=== PATIENT | male | born 1940 | race Caucasian/White ===

== ENCOUNTER 2016-07-29 18:42 | Inpatient (IN) | payer MEDICARE, OTHER ==
[~2016-07-29] VITALS: Ht 177.8 cm; Wt 66.3 kg
[2016-07-29] MEDS ORDERED: ALBUTEROL/IPRATROPIUM 2.5MG/0.5MG, 3 ML ONE ×2 (19:22→19:30)
[2016-07-29] MEDS ORDERED: SODIUM CHLORIDE 0.9% 1,000ML IVBOLUS ONE (19:30)
[2016-07-29] MEDS ORDERED: SODIUM CHLORIDE FLUSH 10ML SYR IVF ONE (19:30)
[2016-07-29] MEDS: ALBUTEROL/IPRATROPIUM 2.5MG/0.5MG, 3 ML NPPB SCH ×2 (19:39→23:16)
[2016-07-29] MEDS ORDERED: ASPI-515 PO (19:46)
[2016-07-29 19:58] LABS: ASPARTATE AMINO TRANSFERASE 72 U/L (15-37); BLOOD UREA NITROGEN 21 mg/dL (7-18)
[2016-07-29 19:59] LABS: IS PT STATUS REG ER OR PRE ER? YES
[2016-07-29 20:13] LABS: DIFF TOTAL CELLS COUNTED 100 CELL DIFF
[2016-07-29 20:16] LABS: ANISOCYTOSIS 1+; LARGE PLATELETS 1+; VERIFY COUNTS? YES
[2016-07-29] MEDS ORDERED: CEFTRIAXONE PMX 1GM/50ML 50 ML IVPB ONE (20:30)
[2016-07-29] MEDS ORDERED: AZITHROMYCIN 500 MG in SODIUM CHLORIDE 0.9% 250 ML IV ONE (20:30)
[2016-07-29] MEDS ORDERED: SERT25TA3 PO (20:44)
[2016-07-29] MEDS ORDERED: BUDE10.2 INH (20:44)
[2016-07-29] MEDS ORDERED: TAMS-11 PO (20:44)
[2016-07-29] MEDS ORDERED: CARV6.252 PO (20:44)
[2016-07-29] MEDS ORDERED: ALBU18HF INH (20:44)
[2016-07-29] MEDS ORDERED: MULT-6 PO (20:44)
[2016-07-29] MEDS ORDERED: FERR140T2 PO (20:44)
[2016-07-29] MEDS ORDERED: CHOL20003 PO (20:44)
[2016-07-29] MEDS ORDERED: ALBU6.7H INH (20:44)
[2016-07-29] MEDS: SODIUM CHLORIDE 0.9% 1,000 ML IV SCH (20:45)
[2016-07-29 20:49] LABS: PATH.CAST-FLAG NOT PRESENT; SPERM-FLAG NOT PRESENT; SRC-FLAG NOT PRESENT; XTAL-FLAG NOT PRESENT; YLC-FLAG NOT PRESENT
[2016-07-29] MEDS ORDERED: CEFTRIAXONE PMX 1GM/50ML 50 ML ONE (20:51)
[2016-07-29] MEDS: CEFTRIAXONE PMX 1GM/50ML 50 ML IV SCH (21:00)
[2016-07-29] MEDS: AZITHROMYCIN 500 MG in SODIUM CHLORIDE 0.9% 250 ML IV SCH (21:00)
[2016-07-29] MEDS ORDERED: POLYETHYLENE GLYCOL 17 GM PACKET PO PRN (21:00)
[2016-07-29] MEDS ORDERED: LABETALOL 5MG/ML, 20ML IV PRN (21:00)
[2016-07-29] MEDS ORDERED: BISACODYL 10 MG SUPP PR PRN (21:00)
[2016-07-29] MEDS ORDERED: ACETAMINOPHEN 325 MG TABLET PO PRN (21:00)
[2016-07-29] MEDS ORDERED: DOCUSATE 100 MG CAPSULE PO PRN (21:00)
[2016-07-29] MEDS ORDERED: ONDANSETRON 2MG/ML, 2ML IVP PRN (21:00)
[2016-07-29] MEDS ORDERED: ALBUTEROL/IPRATROPIUM 2.5MG/0.5MG, 3 ML NPPB PRN (23:30)
[2016-07-30 00:09] VITALS: BP 160/82
[2016-07-30] MEDS: CARVEDILOL 6.25 MG TABLET PO SCH ×3 (00:48→20:18)
[2016-07-30] MEDS: LACTOBACILLUS CHEW TABLET PO SCH ×5 (00:49→20:18)
[2016-07-30] MEDS: methylPREDNISolone SOD SUCC 125 MG/2 ML IVPush SCH ×4 (00:49→20:18)
[2016-07-30] MEDS: HEPARIN 5,000 UNITS/ML, 1ML SQ SCH ×3 (00:53→17:08)
[2016-07-30 04:35] VITALS: BP 106/67
[2016-07-30] MEDS: SODIUM CHLORIDE 0.9% 1,000 ML IV SCH ×2 (04:39→17:08)
[2016-07-30 05:33] LABS: BLOOD UREA NITROGEN 20 mg/dL (7-18)
[2016-07-30 05:35] LABS: ASPARTATE AMINO TRANSFERASE 37 U/L (15-37)
[2016-07-30 05:55] LABS: DIFF TOTAL CELLS COUNTED 100 CELL DIFF
[2016-07-30 05:58] LABS: ANISOCYTOSIS 1+; VERIFY COUNTS? YES
[2016-07-30 06:00] LABS: LARGE PLATELETS 1+
[2016-07-30] MEDS: ALBUTEROL/IPRATROPIUM 2.5MG/0.5MG, 3 ML NPPB SCH ×4 (06:31→20:34)
[2016-07-30] MEDS: ASPIRIN 81 MG TABLET EC PO SCH (08:21)
[2016-07-30] MEDS: MULTIVITAMIN 1 TABLET PO SCH (08:21)
[2016-07-30] MEDS: TAMSULOSIN 0.4 MG CAP.ER.24H PO SCH (08:21)
[2016-07-30] MEDS: CEFTRIAXONE PMX 1GM/50ML 50 ML IV SCH ×2 (08:21→20:18)
[2016-07-30] MEDS: SERTRALINE 50MG TABLET PO SCH (08:22)
[2016-07-30 08:35] VITALS: BP 111/73
[2016-07-30] MEDS: FLUTICASONE/VILANTEROL 200-25MCG/INH INH SCH (11:30)
[2016-07-30 14:23] VITALS: BP 120/75
[2016-07-30 18:35] VITALS: BP 133/81
[2016-07-30] MEDS: AZITHROMYCIN 500 MG in SODIUM CHLORIDE 0.9% 250 ML IV SCH (21:23)
[2016-07-31 01:32] VITALS: BP 147/86
[2016-07-31] MEDS: HEPARIN 5,000 UNITS/ML, 1ML SQ SCH ×3 (01:32→16:49)
[2016-07-31] MEDS: methylPREDNISolone SOD SUCC 125 MG/2 ML IVPush SCH ×4 (01:32→20:13)
[2016-07-31] MEDS: LACTOBACILLUS CHEW TABLET PO SCH ×4 (05:09→20:14)
[2016-07-31] MEDS: SODIUM CHLORIDE 0.9% 1,000 ML IV SCH ×2 (05:10→16:00)
[2016-07-31 06:22] LABS: DIFF TOTAL CELLS COUNTED 100 CELL DIFF
[2016-07-31 06:26] LABS: VERIFY COUNTS? YES
[2016-07-31 06:29] LABS: LARGE PLATELETS 1+
[2016-07-31 07:51] VITALS: BP 155/90
[2016-07-31] MEDS: ASPIRIN 81 MG TABLET EC PO SCH (08:11)
[2016-07-31] MEDS: MULTIVITAMIN 1 TABLET PO SCH (08:11)
[2016-07-31] MEDS: SERTRALINE 50MG TABLET PO SCH (08:12)
[2016-07-31] MEDS: FLUTICASONE/VILANTEROL 200-25MCG/INH INH SCH (08:12)
[2016-07-31] MEDS: CARVEDILOL 6.25 MG TABLET PO SCH ×2 (08:12→20:14)
[2016-07-31] MEDS: CEFTRIAXONE PMX 1GM/50ML 50 ML IV SCH ×2 (08:13→20:14)
[2016-07-31] MEDS: ALBUTEROL/IPRATROPIUM 2.5MG/0.5MG, 3 ML NPPB SCH ×4 (08:22→20:00)
[2016-07-31] MEDS: TAMSULOSIN 0.4 MG CAP.ER.24H PO SCH (11:43)
[2016-07-31 13:17] VITALS: BP 143/85
[2016-07-31 18:46] VITALS: BP 153/87
[2016-07-31] MEDS: GUAIFENESIN 200 MG TABLET PO SCH (20:13)
[2016-07-31] MEDS: AZITHROMYCIN 500 MG in SODIUM CHLORIDE 0.9% 250 ML IV SCH (21:51)
[2016-08-01] MEDS: methylPREDNISolone SOD SUCC 125 MG/2 ML IVPush SCH ×2 (02:02→08:44)
[2016-08-01] MEDS: HEPARIN 5,000 UNITS/ML, 1ML SQ SCH ×2 (02:03→11:33)
[2016-08-01 03:11] VITALS: BP 161/99
[2016-08-01] MEDS: LACTOBACILLUS CHEW TABLET PO SCH ×2 (06:08→11:33)
[2016-08-01] MEDS: ALBUTEROL/IPRATROPIUM 2.5MG/0.5MG, 3 ML NPPB SCH ×3 (07:30→15:09)
[2016-08-01] MEDS: SERTRALINE 50MG TABLET PO SCH (08:44)
[2016-08-01] MEDS: CEFTRIAXONE PMX 1GM/50ML 50 ML IV SCH (08:44)
[2016-08-01] MEDS: ASPIRIN 81 MG TABLET EC PO SCH (08:45)
[2016-08-01] MEDS: TAMSULOSIN 0.4 MG CAP.ER.24H PO SCH (08:45)
[2016-08-01] MEDS: CARVEDILOL 6.25 MG TABLET PO SCH (08:45)
[2016-08-01] MEDS: MULTIVITAMIN 1 TABLET PO SCH (08:45)
[2016-08-01] MEDS: FLUTICASONE/VILANTEROL 200-25MCG/INH INH SCH (08:45)
[2016-08-01] MEDS: GUAIFENESIN 200 MG TABLET PO SCH (08:45)
[2016-08-01 09:08] VITALS: BP 160/97
[2016-08-01] MEDS ORDERED: GUAI200T3 PO (14:36)
[2016-08-01] MEDS ORDERED: CEFD300C2 PO (14:36)
[2016-08-01] MEDS ORDERED: AZIT500T4 PO (14:36)
[2016-08-01] MEDS ORDERED: PRED5TAB PO (14:36)
[2016-08-01] MEDS ORDERED: IPRA3AMP NPPB (14:36)
[2016-08-01] MEDS ORDERED: DOCU-30 PO (14:36)
[2016-08-01] MEDS ORDERED: ACID1TAB7 PO (14:36)
[2016-08-01] MEDS ORDERED: LOSA25TA2 PO (14:46)
[2016-08-01 15:01] VITALS: BP 144/87
== END 2016-08-01 16:00 | disposition home health service (06) | DRG 871 ==
LOC: ED 20:40 → EDIP 20:41 → SUATTDRO 20:43 → ED 21:05 → 4WST 07-30 00:18
PROC: 0T9B70Z Drainage of Bladder with Drainage Device, Via Natural or Artificial Opening (ICD-10-PCS; principal; 2016-07-29)
DX: A41.9 Sepsis, unspecified organism (principal); N17.0 Acute kidney failure with tubular necrosis; J18.9 Pneumonia, unspecified organism; J96.21 Acute and chronic respiratory failure with hypoxia; E44.0 Moderate protein-calorie malnutrition; J44.0 Chronic obstructive pulmonary disease with (acute) lower respiratory infection; J44.1 Chronic obstructive pulmonary disease with (acute) exacerbation; N39.0 Urinary tract infection, site not specified; D64.9 Anemia, unspecified; I11.9 Hypertensive heart disease without heart failure; K21.9 Gastro-esophageal reflux disease without esophagitis; F32.9 Major depressive disorder, single episode, unspecified; N40.0 Benign prostatic hyperplasia without lower urinary tract symptoms; R47.81 Slurred speech; Z87.891 Personal history of nicotine dependence; Z99.81 Dependence on supplemental oxygen; Z90.49 Acquired absence of other specified parts of digestive tract; Z90.89 Acquired absence of other organs; Z84.89 Family history of other specified conditions; Z79.82 Long term (current) use of aspirin; Z79.899 Other long term (current) drug therapy; Z68.21 Body mass index [BMI] 21.0-21.9, adult
CPT/HCPCS: 36415; 71010; 80053; 81001; 82436; 82570; 83605; 83880; 84133; 84145; 84300; 84439; 84443; 84484; 85025; 85610; 85730; 87040; 87086; 87106; 93005; 94640; 96361; 96365; 96366; 96368; J0456; J0696; J1644; J7620; J2930; J7030; J7050; J7512

== ENCOUNTER 2016-09-07 13:01 | Inpatient (IN) | payer MEDICARE, OTHER ==
[~2016-09-07] VITALS: Ht 177.8 cm; Wt 65.6 kg
[~2016-09-07 13:01] MED LIST: ACID1TAB7 PO; ALBU18HF INH; ALBU6.7H INH; ASPI-515 PO; AZIT500T77 PO; BUDE10.2 INH; CARV6.252 PO; CEFD300C37 PO; CHOL20003 PO; DOCU-30 PO; FERR140T2 PO; GUAI200T3 PO; IPRA3AMP NPPB; LOSA25TA2 PO; MULT-6 PO; PRED5TAB PO; SERT25TA3 PO; TAMS-11 PO
[2016-09-07] MEDS ORDERED: methylPREDNISolone SOD SUCC 125 MG/2 ML IVP ONE (14:00)
[2016-09-07] MEDS ORDERED: SODIUM CHLORIDE FLUSH 10ML SYR IVF ONE (14:00)
[2016-09-07] MEDS: ALBUTEROL/IPRATROPIUM 2.5MG/0.5MG, 3 ML NPPB SCH ×2 (14:11→17:00)
[2016-09-07] MEDS ORDERED: ALBUTEROL/IPRATROPIUM 2.5MG/0.5MG, 3 ML ONE ×2 (14:11→17:01)
[2016-09-07] MEDS ORDERED: methylPREDNISolone SOD SUCC 125 MG/2 ML ONE (14:21)
[2016-09-07] MEDS ORDERED: CEFTRIAXONE 1,000 MG in SODIUM CHLORIDE 0.9% 50 ML IVPB ONE (15:00)
[2016-09-07 15:15] LABS: DIFF TOTAL CELLS COUNTED 100 CELL DIFF
[2016-09-07 15:17] LABS: GIANT PLATELETS 1+; LARGE PLATELETS 1+; VERIFY COUNTS? YES
[2016-09-07] MEDS ORDERED: ACETAMINOPHEN 325 MG TABLET ONE (15:27)
[2016-09-07] MEDS ORDERED: SODIUM CHLORIDE 0.9% 1,000ML IVBOLUS ONE ×2 (15:30)
[2016-09-07] MEDS ORDERED: ACETAMINOPHEN 325 MG TABLET PO ONE (15:30)
[2016-09-07 15:50] LABS: ASPARTATE AMINO TRANSFERASE 20 U/L (15-37); BLOOD UREA NITROGEN 22 mg/dL (7-18)
[2016-09-07 16:00] LABS: IS PT STATUS REG ER OR PRE ER? YES
[2016-09-07] MEDS ORDERED: AZITHROMYCIN 500 MG in SODIUM CHLORIDE 0.9% 250 ML IVPB ONE (16:00)
[2016-09-07] MEDS ORDERED: OMNIPAQUE 350 MG/ML, 100ML BOTTLE ONE (17:50)
[2016-09-07] MEDS ORDERED: SODIUM CHLORIDE FLUSH 10ML SYR IVF PRN (18:30)
[2016-09-07] MEDS ORDERED: POLYETHYLENE GLYCOL 17 GM PACKET PO PRN (19:00)
[2016-09-07] MEDS ORDERED: ACETAMINOPHEN 325 MG TABLET PO PRN (19:00)
[2016-09-07] MEDS ORDERED: GUAIFENESIN/DM 200-20MG, 10ML UDC PO PRN (19:00)
[2016-09-07] MEDS ORDERED: KETOROLAC 30 MG/1 ML IVPush PRN (19:00)
[2016-09-07] MEDS ORDERED: OXYcodone IR 5MG TABLET PO PRN (19:00)
[2016-09-07] MEDS ORDERED: ONDANSETRON 2MG/ML, 2ML IVPush PRN (19:00)
[2016-09-07] MEDS ORDERED: ALBUTEROL/IPRATROPIUM 2.5MG/0.5MG, 3 ML NPPB PRN (19:00)
[2016-09-07] MEDS ORDERED: BISACODYL 10 MG SUPP PR PRN (19:00)
[2016-09-07] MEDS: AZITHROMYCIN 500 MG in SODIUM CHLORIDE 0.9% 250 ML IV SCH (19:19)
[2016-09-07] MEDS: CEFTRIAXONE 1,000 MG in SODIUM CHLORIDE 0.9% 50 ML IV SCH (19:19)
[2016-09-07 20:00] VITALS: BP 113/72
[2016-09-07] MEDS: CHOLECALCIFEROL 1,000 UNIT TABLET PO SCH (21:52)
[2016-09-07] MEDS: FERROUS SULFATE 325 MG TABLET PO SCH (21:52)
[2016-09-07] MEDS: HEPARIN 5,000 UNITS/ML, 1ML SQ SCH (21:53)
[2016-09-07] MEDS: SODIUM CHLORIDE 0.9% 1,000 ML IV SCH (21:53)
[2016-09-07 21:59] VITALS: BP 113/72
[2016-09-08] MEDS: ALBUTEROL/IPRATROPIUM 2.5MG/0.5MG, 3 ML NPPB SCH ×5 (00:01→19:59)
[2016-09-08 04:57] VITALS: BP 126/81
[2016-09-08 05:22] LABS: BLOOD UREA NITROGEN 23 mg/dL (7-18)
[2016-09-08 05:27] LABS: ASPARTATE AMINO TRANSFERASE 13 U/L (15-37)
[2016-09-08] MEDS: HEPARIN 5,000 UNITS/ML, 1ML SQ SCH ×3 (05:29→22:52)
[2016-09-08] MEDS: SODIUM CHLORIDE 0.9% 1,000 ML IV SCH ×3 (05:30→22:51)
[2016-09-08 07:42] VITALS: BP 137/91
[2016-09-08] MEDS: SENNA/DOCUSATE TABLET PO SCH (09:00)
[2016-09-08] MEDS: ASPIRIN 81 MG TABLET EC PO SCH (09:32)
[2016-09-08] MEDS: FLUTICASONE/VILANTEROL 200-25MCG/INH INH SCH (09:32)
[2016-09-08] MEDS: SERTRALINE 50MG TABLET PO SCH (09:33)
[2016-09-08] MEDS: MULTIVITAMIN 1 TABLET PO SCH (09:33)
[2016-09-08] MEDS: TAMSULOSIN 0.4 MG CAP.ER.24H PO SCH (09:33)
[2016-09-08] MEDS: FERROUS SULFATE 325 MG TABLET PO SCH ×2 (10:50→22:51)
[2016-09-08] MEDS: CHOLECALCIFEROL 1,000 UNIT TABLET PO SCH ×2 (10:50→22:52)
[2016-09-08 13:40] VITALS: BP 100/69
[2016-09-08] MEDS: CEFTRIAXONE 1,000 MG in SODIUM CHLORIDE 0.9% 50 ML IV SCH (14:56)
[2016-09-08] MEDS: AZITHROMYCIN 500 MG in SODIUM CHLORIDE 0.9% 250 ML IV SCH (15:40)
[2016-09-08 19:14] VITALS: BP 120/69
[2016-09-09 01:55] VITALS: BP 149/87
[2016-09-09 05:23] LABS: ASPARTATE AMINO TRANSFERASE 18 U/L (15-37); BLOOD UREA NITROGEN 25 mg/dL (7-18)
[2016-09-09] MEDS: ALBUTEROL/IPRATROPIUM 2.5MG/0.5MG, 3 ML NPPB SCH ×4 (06:34→20:05)
[2016-09-09 08:35] VITALS: BP 152/91
[2016-09-09] MEDS: FERROUS SULFATE 325 MG TABLET PO SCH ×2 (08:47→19:59)
[2016-09-09] MEDS: ASPIRIN 81 MG TABLET EC PO SCH (08:47)
[2016-09-09] MEDS: FLUTICASONE/VILANTEROL 200-25MCG/INH INH SCH (08:47)
[2016-09-09] MEDS: HEPARIN 5,000 UNITS/ML, 1ML SQ SCH ×2 (08:47→15:50)
[2016-09-09] MEDS: SERTRALINE 50MG TABLET PO SCH (08:48)
[2016-09-09] MEDS: MULTIVITAMIN 1 TABLET PO SCH (08:48)
[2016-09-09] MEDS: TAMSULOSIN 0.4 MG CAP.ER.24H PO SCH (08:48)
[2016-09-09] MEDS: CHOLECALCIFEROL 1,000 UNIT TABLET PO SCH ×2 (08:48→19:59)
[2016-09-09] MEDS: SENNA/DOCUSATE TABLET PO SCH (08:48)
[2016-09-09] MEDS: SODIUM CHLORIDE 0.9% 1,000 ML IV SCH ×2 (08:59→14:43)
[2016-09-09] MEDS ORDERED: GADOBUTROL 10 MMOL/10 ML VIAL ONE (13:20)
[2016-09-09 14:36] VITALS: BP 127/83
[2016-09-09] MEDS: CEFTRIAXONE 1,000 MG in SODIUM CHLORIDE 0.9% 50 ML IV SCH (14:41)
[2016-09-09] MEDS: AZITHROMYCIN 500 MG in SODIUM CHLORIDE 0.9% 250 ML IV SCH (15:50)
[2016-09-09 18:26] VITALS: BP 125/62
[2016-09-09 19:01] VITALS: BP 130/92
[2016-09-09] MEDS: CARVEDILOL 6.25 MG TABLET PO SCH (19:59)
[2016-09-10 01:54] VITALS: BP 150/96
[2016-09-10 05:56] LABS: ASPARTATE AMINO TRANSFERASE 17 U/L (15-37); BLOOD UREA NITROGEN 21 mg/dL (7-18)
[2016-09-10 06:28] VITALS: BP 154/98
[2016-09-10] MEDS: ALBUTEROL/IPRATROPIUM 2.5MG/0.5MG, 3 ML NPPB SCH ×3 (06:47→15:00)
[2016-09-10] MEDS: SENNA/DOCUSATE TABLET PO SCH (07:57)
[2016-09-10] MEDS: HEPARIN 5,000 UNITS/ML, 1ML SQ SCH ×3 (07:59→15:19)
[2016-09-10] MEDS: FLUTICASONE/VILANTEROL 200-25MCG/INH INH SCH (08:00)
[2016-09-10] MEDS: CARVEDILOL 6.25 MG TABLET PO SCH (08:01)
[2016-09-10] MEDS: CHOLECALCIFEROL 1,000 UNIT TABLET PO SCH (08:02)
[2016-09-10] MEDS: TAMSULOSIN 0.4 MG CAP.ER.24H PO SCH (08:02)
[2016-09-10] MEDS: ASPIRIN 81 MG TABLET EC PO SCH (08:02)
[2016-09-10] MEDS: MULTIVITAMIN 1 TABLET PO SCH (08:02)
[2016-09-10] MEDS: FERROUS SULFATE 325 MG TABLET PO SCH (08:02)
[2016-09-10] MEDS: SERTRALINE 50MG TABLET PO SCH (08:05)
[2016-09-10] MEDS ORDERED: LOSARTAN 25MG TABLET PO SCH (09:00)
[2016-09-10 14:10] VITALS: BP 121/86
[2016-09-10] MEDS ORDERED: CEFTRIAXONE 1,000 MG in SODIUM CHLORIDE 0.9% 100 ML IVPB SCH (15:00)
[2016-09-10] MEDS ORDERED: CEFD300C37 PO (15:11)
[2016-09-10] MEDS ORDERED: DOXY100T PO (15:11)
[2016-09-10] MEDS: AZITHROMYCIN 500 MG in SODIUM CHLORIDE 0.9% 250 ML IV SCH (16:00)
== END 2016-09-10 16:36 | disposition home or self-care (01) | DRG 871 ==
LOC: ED 15:03 → EDIP 18:24 → 3NE 20:05 → DCLOUNGE 09-10 16:16
PROVIDERS: ADMIT Hospitalist; ATTEND Hospitalist
DX: A41.9 Sepsis, unspecified organism (principal); E43 Unspecified severe protein-calorie malnutrition; J18.9 Pneumonia, unspecified organism; J96.21 Acute and chronic respiratory failure with hypoxia; I50.32 Chronic diastolic (congestive) heart failure; J44.0 Chronic obstructive pulmonary disease with (acute) lower respiratory infection; R65.20 Severe sepsis without septic shock; D53.9 Nutritional anemia, unspecified; F32.9 Major depressive disorder, single episode, unspecified; I11.0 Hypertensive heart disease with heart failure; I71.2 Thoracic aortic aneurysm, without rupture; M54.9 Dorsalgia, unspecified; K21.9 Gastro-esophageal reflux disease without esophagitis; K76.9 Liver disease, unspecified; N40.0 Benign prostatic hyperplasia without lower urinary tract symptoms; Z87.01 Personal history of pneumonia (recurrent); Z87.891 Personal history of nicotine dependence; Z99.81 Dependence on supplemental oxygen; Z87.81 Personal history of (healed) traumatic fracture; Z90.49 Acquired absence of other specified parts of digestive tract; Z79.899 Other long term (current) drug therapy; Z79.82 Long term (current) use of aspirin; Z68.20 Body mass index [BMI] 20.0-20.9, adult; R59.0 Localized enlarged lymph nodes
CPT/HCPCS: 36415; 71010; 71275; 74183; 80053; 83605; 83880; 84145; 84484; 85025; 85379; 85610; 85730; 87040; 87070; 87107; 87205; 93005; 93306; 94640; 96365; 96366; 96367; 96375; A9585; J0456; J0696; J1644; J7620; Q9967; J2930; J7030; J7050

== ENCOUNTER 2016-10-02 11:04 | Emergency (ER) | payer MEDICARE, OTHER ==
[~2016-10-02] VITALS: Ht 177.8 cm; Wt 63.6 kg
[~2016-10-02 11:04] MED LIST changes: +DOXY100T PO
[2016-10-02] MEDS ORDERED: SODIUM CHLORIDE 0.9% 1,000ML IV ONE (11:30)
[2016-10-02] MEDS ORDERED: SODIUM CHLORIDE FLUSH 10ML SYR IVF ONE (11:30)
[2016-10-02 12:58] LABS: BLOOD UREA NITROGEN 15 mg/dL (7-18)
[2016-10-02 13:06] LABS: IS PT STATUS REG ER OR PRE ER? YES
[2016-10-02 13:26] LABS: DIFF TOTAL CELLS COUNTED 100 CELL DIFF
[2016-10-02] MEDS ORDERED: DIAZ5TAB PO (14:05)
[2016-10-02] MEDS ORDERED: OXYcodone/APAP 5/325MG TABLET ONE (14:17)
[2016-10-02 14:28] LABS: PATH.CAST-FLAG NOT PRESENT; SPERM-FLAG NOT PRESENT; SRC-FLAG NOT PRESENT; XTAL-FLAG NOT PRESENT; YLC-FLAG NOT PRESENT
[2016-10-02] MEDS ORDERED: OXYcodone/APAP 5/325MG TABLET PO ONE (14:30)
[2016-10-02 14:39] LABS: ANISOCYTOSIS 1+; POLYCHROMASIA 1+; VERIFY COUNTS? YES
[2016-10-02] MEDS ORDERED: SODIUM CHLORIDE 0.9% 1,000ML IVBOLUS ONE (16:30)
[2016-10-02 16:46] VITALS: BP 121/74
== END 2016-10-02 17:05 | disposition home or self-care (01) ==
LOC: ED 16:59
DX: S13.4XXA Sprain of ligaments of cervical spine, initial encounter (principal); M47.892 Other spondylosis, cervical region; M48.02 Spinal stenosis, cervical region; I10 Essential (primary) hypertension; J44.9 Chronic obstructive pulmonary disease, unspecified; X58.XXXA Exposure to other specified factors, initial encounter; Y93.89 Activity, other specified; Y92.89 Other specified places as the place of occurrence of the external cause; Y99.9 Unspecified external cause status
CPT/HCPCS: 36415; 71010; 72141; 80048; 81001; 82040; 83880; 84484; 85025; 85651; 87086; 93005; 96360; 99285; J7030; J7512

== ENCOUNTER 2017-03-15 20:25 | Inpatient (IN) | payer MEDICARE, OTHER ==
[~2017-03-15] VITALS: Ht 177.8 cm; Wt 61.5 kg
[~2017-03-15 20:25] MED LIST changes: +AZIT500T5 PO; -AZIT500T77 PO; +CHOL2000 PO; -CHOL20003 PO; +DIAZ5TAB PO; +DOCU-131 PO; -DOCU-30 PO
[2017-03-15] MEDS ORDERED: ONDANSETRON 2MG/ML, 2ML ONE (20:53)
[2017-03-15] MEDS ORDERED: FAMOTIDINE 20 MG/2 ML ONE (20:53)
[2017-03-15] MEDS ORDERED: SODIUM CHLORIDE 0.9% 1,000ML IVBOLUS ONE (21:00)
[2017-03-15] MEDS ORDERED: ONDANSETRON 2MG/ML, 2ML IVPush ONE (21:00)
[2017-03-15] MEDS ORDERED: FAMOTIDINE 20 MG/2 ML IVP ONE (21:00)
[2017-03-15] MEDS ORDERED: SODIUM CHLORIDE FLUSH 10ML SYR IVF ONE (21:00)
[2017-03-15] MEDS ORDERED: ALBUTEROL/IPRATROPIUM 2.5MG/0.5MG, 3 ML ONE (21:11)
[2017-03-15 21:14] LABS: HEMATOCRIT 36.2 % (39.2-51.8); HEMOGLOBIN 12.1 g/dL (13.7-18.0); WHITE BLOOD COUNT 11.1 x10^3/uL (3.4-10)
[2017-03-15 21:26] LABS: ASPARTATE AMINO TRANSFERASE 19 U/L (15-37); BLOOD UREA NITROGEN 19 mg/dL (7-18)
[2017-03-15] MEDS ORDERED: ALBUTEROL/IPRATROPIUM 2.5MG/0.5MG, 3 ML NPPB SCH (21:30)
[2017-03-15] MEDS ORDERED: OMNIPAQUE 350 MG/ML, 100ML BOTTLE ONE (23:07)
[2017-03-15] MEDS ORDERED: CEFTRIAXONE PMX 1GM/50ML 50 ML ONE (23:41)
[2017-03-15] MEDS ORDERED: [UNRECOGNIZED DRUG - CODE] PO (23:58)
[2017-03-15] MEDS ORDERED: RANI150T4 PO (23:58)
[2017-03-15] MEDS ORDERED: CLON0.1T PO (23:58)
[2017-03-16] MEDS ORDERED: CEFTRIAXONE PMX 1GM/50ML 50 ML IV ONE
[2017-03-16] MEDS ORDERED: AZITHROMYCIN 500 MG in SODIUM CHLORIDE 0.9% 250 ML IV ONE
[2017-03-16] MEDS ORDERED: ONDANSETRON 2MG/ML, 2ML IVPush PRN (00:30)
[2017-03-16] MEDS ORDERED: ACETAMINOPHEN 325 MG TABLET PO PRN (00:30)
[2017-03-16 01:07] VITALS: BP 123/86
[2017-03-16] MEDS ORDERED: ALBUTEROL/IPRATROPIUM 2.5MG/0.5MG, 3 ML NPPB PRN (04:00)
[2017-03-16 04:57] LABS: HEMATOCRIT 32.2 % (39.2-51.8); HEMOGLOBIN 10.8 g/dL (13.7-18.0); WHITE BLOOD COUNT 11.1 x10^3/uL (3.4-10)
[2017-03-16 05:12] LABS: ASPARTATE AMINO TRANSFERASE 16 U/L (15-37); BLOOD UREA NITROGEN 16 mg/dL (7-18)
[2017-03-16] MEDS: HEPARIN 5,000 UNITS/ML, 1ML SQ SCH ×3 (05:48→20:18)
[2017-03-16 06:41] LABS: DIFF TOTAL CELLS COUNTED 100 CELL DIFF
[2017-03-16 06:43] LABS: ANISOCYTOSIS 1+; VERIFY COUNTS? YES
[2017-03-16 06:44] LABS: LARGE PLATELETS 1+
[2017-03-16 07:01] VITALS: BP 115/76
[2017-03-16] MEDS: ALBUTEROL/IPRATROPIUM 2.5MG/0.5MG, 3 ML NPPB SCH ×4 (08:30→19:55)
[2017-03-16] MEDS: CHOLECALCIFEROL 1,000 UNIT TABLET PO SCH ×2 (08:58→20:18)
[2017-03-16] MEDS: TAMSULOSIN 0.4 MG CAP.ER.24H PO SCH (08:58)
[2017-03-16] MEDS: FAMOTIDINE 20 MG TABLET PO SCH ×2 (08:58→20:18)
[2017-03-16] MEDS: ASPIRIN 81 MG TABLET EC PO SCH (08:58)
[2017-03-16] MEDS: SERTRALINE 50MG TABLET PO SCH (08:58)
[2017-03-16] MEDS: CARVEDILOL 6.25 MG TABLET PO SCH ×2 (08:58→20:18)
[2017-03-16] MEDS: GUAIFENESIN 200 MG TABLET PO SCH (08:58)
[2017-03-16] MEDS: SODIUM CHLORIDE FLUSH 10ML SYR IVF SCH ×2 (09:00→20:18)
[2017-03-16] MEDS: FLUTICASONE/VILANTEROL 200-25MCG/INH INH SCH (09:53)
[2017-03-16 13:06] VITALS: BP 79/54
[2017-03-16] MEDS ORDERED: SODIUM CHLORIDE 0.9% 1,000ML IVBOLUS ONE (13:30)
[2017-03-16 14:30] VITALS: BP 129/76
[2017-03-16] MEDS: SODIUM CHLORIDE 0.9% 1,000 ML IV SCH ×2 (14:48→20:17)
[2017-03-16 15:45] LABS: TOTAL IRON BINDING CAPACITY 210 mcg/dL (250-450)
[2017-03-16 16:11] LABS: FERRITIN 126.1 ng/mL (26-388)
[2017-03-16 18:49] VITALS: BP 120/81
[2017-03-16 21:45] VITALS: BP 101/63
[2017-03-17] MEDS ORDERED: CEFTRIAXONE PMX 1GM/50ML 50 ML IV SCH
[2017-03-17] MEDS ORDERED: AZITHROMYCIN 500 MG in SODIUM CHLORIDE 0.9% 250 ML IV SCH (01:00)
[2017-03-17 02:43] VITALS: BP 111/85
[2017-03-17 04:49] LABS: BLOOD UREA NITROGEN 15 mg/dL (7-18)
[2017-03-17 05:09] LABS: HEMATOCRIT 29.1 % (39.2-51.8); HEMOGLOBIN 9.7 g/dL (13.7-18.0); WHITE BLOOD COUNT 5.2 x10^3/uL (3.4-10)
[2017-03-17] MEDS: SODIUM CHLORIDE 0.9% 1,000 ML IV SCH ×2 (06:11→11:07)
[2017-03-17] MEDS: HEPARIN 5,000 UNITS/ML, 1ML SQ SCH (06:11)
[2017-03-17 06:56] VITALS: BP 138/84
[2017-03-17] MEDS: ALBUTEROL/IPRATROPIUM 2.5MG/0.5MG, 3 ML NPPB SCH ×3 (07:15→14:58)
[2017-03-17] MEDS: SODIUM CHLORIDE FLUSH 10ML SYR IVF SCH (09:00)
[2017-03-17] MEDS: FLUTICASONE/VILANTEROL 200-25MCG/INH INH SCH (10:58)
[2017-03-17] MEDS: CHOLECALCIFEROL 1,000 UNIT TABLET PO SCH (11:01)
[2017-03-17] MEDS: CARVEDILOL 6.25 MG TABLET PO SCH (11:01)
[2017-03-17] MEDS: GUAIFENESIN 200 MG TABLET PO SCH (11:01)
[2017-03-17] MEDS: FAMOTIDINE 20 MG TABLET PO SCH (11:01)
[2017-03-17] MEDS: TAMSULOSIN 0.4 MG CAP.ER.24H PO SCH (11:01)
[2017-03-17] MEDS: ASPIRIN 81 MG TABLET EC PO SCH (11:01)
[2017-03-17] MEDS: SERTRALINE 50MG TABLET PO SCH (11:02)
[2017-03-17] MEDS ORDERED: CEFD300C37 PO (12:11)
[2017-03-17] MEDS ORDERED: AZIT500T5 PO (12:11)
[2017-03-17 13:04] VITALS: BP 131/81
[2017-03-17] MEDS ORDERED: FLU VACC QS2017-18 (36MOS+) UP/PF 0.5 ML IM-VACC ONE (15:00)
== END 2017-03-17 15:15 | disposition home or self-care (01) | DRG 682 ==
LOC: ED 22:33 → EDIP 23:57 → 3NW 03-16 01:05
PROVIDERS: ADMIT Family Medicine; ATTEND Family Medicine
DX: N17.9 Acute kidney failure, unspecified (principal); J18.1 Lobar pneumonia, unspecified organism; J96.11 Chronic respiratory failure with hypoxia; I71.2 Thoracic aortic aneurysm, without rupture; Z99.81 Dependence on supplemental oxygen; J44.0 Chronic obstructive pulmonary disease with (acute) lower respiratory infection; E44.1 Mild protein-calorie malnutrition; A09 Infectious gastroenteritis and colitis, unspecified; J44.1 Chronic obstructive pulmonary disease with (acute) exacerbation; Z68.1 Body mass index [BMI] 19.9 or less, adult; D64.9 Anemia, unspecified; E86.1 Hypovolemia; I10 Essential (primary) hypertension; K21.9 Gastro-esophageal reflux disease without esophagitis; N40.0 Benign prostatic hyperplasia without lower urinary tract symptoms; F32.9 Major depressive disorder, single episode, unspecified; R91.1 Solitary pulmonary nodule; Z87.891 Personal history of nicotine dependence; Z90.49 Acquired absence of other specified parts of digestive tract; Z90.89 Acquired absence of other organs; Z23 Encounter for immunization
CPT/HCPCS: 36415; 71020; 74177; 80048; 80053; 82040; 82607; 82728; 82746; 83540; 83550; 83605; 84145; 85025; 85045; 87040; 87046; 87070; 87077; 87205; 87324; 87899; 89055; 90686; 93005; 94640; 96361; 96365; 96375; J0456; J0696; J1644; J2405; J7620; Q9967; J7030; J7050; S0028

== ENCOUNTER 2017-09-10 13:11 | Emergency (ER) | payer MEDICARE, OTHER ==
[~2017-09-10] VITALS: Ht 177.8 cm; Wt 59.5 kg
[~2017-09-10 13:11] MED LIST changes: +CLON0.1T PO; +RANI150T4 PO; +[UNRECOGNIZED DRUG - CODE] PO
[2017-09-10 16:03] LABS: ALBUMIN 2.8 g/dL (3.4-5.0); ANION GAP 9 mmol/L (5-15); CALCIUM 8.8 mg/dL (8.5-10.1); CHLORIDE 101 mmol/L (98-107)
[2017-09-10 16:10] LABS: ALANINE AMINOTRANSFERASE 14 U/L (12-78); ALKALINE PHOSPHATASE 45 U/L (45-117); BILIRUBIN,TOTAL 0.3 mg/dL (0.2-1.0); CREATININE 1.66 mg/dL (0.7-1.3); TOTAL PROTEIN 7.8 g/dL (6.4-8.2); TROPONIN I < 0.015 ng/mL (0.000-0.045)
[2017-09-10 16:16] LABS: MD YES; MEAN CORPUSCULAR HEMOGLOBIN 30.9 pg (27.5-34.5); MEAN CORPUSCULAR VOLUME 93.8 fL (81-97); MEAN PLATELET VOLUME 9.9 fL (7.4-10.4); PLATELET COUNT 190 x10^3/uL (130-400); RED BLOOD COUNT 3.69 x10^6/uL (4.38-5.82); RED CELL DISTRIBUTION WIDTH 15.6 % (9.4-14.8)
[2017-09-10 16:22] LABS: BAND#(MANUAL) 0.79 x10^3/uL; BANDS%(MANUAL) 8 % (0-7); EOS% (MANUAL) 2 % (1-7); LYMPH#(MANUAL) 0.79 x10^3/uL (1-3.4); LYMPHS% (MANUAL) 8 % (22-44); METAMYELOCYTES% (MANUAL) 2 % (0-1); MONOS#(MANUAL) 1.39 x10^3/uL (0.3-2.7); MONOS% (MANUAL) 14 % (2-9); MYELOCYTES% (MANUAL) 2 % (0-0); SEG#(MANUAL) 6.34 x10^3/uL (1.8-6.8); SEGS% (MANUAL) 64 % (42-75)
[2017-09-10 16:28] LABS: <PLATELET ESTIMATE> ADEQUATE
[2017-09-10 16:29] LABS: LARGE PLATELETS 1+
[2017-09-10 16:30] LABS: ANISOCYTOSIS 1+
[2017-09-10 17:36] VITALS: BP 105/70
== END 2017-09-10 17:38 | disposition home or self-care (01) ==
LOC: ED 15:37
DX: J00 Acute nasopharyngitis [common cold] (principal); F32.9 Major depressive disorder, single episode, unspecified; I10 Essential (primary) hypertension; Z87.891 Personal history of nicotine dependence; J43.9 Emphysema, unspecified
CPT/HCPCS: 36415; 71045; 80053; 83605; 84145; 84484; 85025; 87040; 93005; 99285

== ENCOUNTER 2017-09-24 10:37 | Inpatient (IN) | payer MEDICARE, OTHER ==
[~2017-09-24] VITALS: Ht 177.8 cm; Wt 63.1 kg
[2017-09-24 11:29] LABS: MEAN CORPUSCULAR HEMOGLOBIN 31.1 pg (27.5-34.5); MEAN CORPUSCULAR VOLUME 94.3 fL (81-97); MEAN PLATELET VOLUME 9.7 fL (7.4-10.4); PLATELET COUNT 168 x10^3/uL (130-400); RED BLOOD COUNT 3.96 x10^6/uL (4.38-5.82)
[2017-09-24] MEDS ORDERED: SODIUM CHLORIDE 0.9% 1,000 ML IV ONE (11:36)
[2017-09-24] MEDS ORDERED: MORPHINE SULFATE 4 MG/ML, 1ML ONE (11:41)
[2017-09-24] MEDS ORDERED: ONDANSETRON ODT 4 MG ONE (11:41)
[2017-09-24 11:52] LABS: ALANINE AMINOTRANSFERASE 16 U/L (12-78); ALBUMIN 3.1 g/dL (3.4-5.0); ANION GAP 4 mmol/L (5-15); CALCIUM 9.1 mg/dL (8.5-10.1); CHLORIDE 105 mmol/L (98-107)
[2017-09-24 11:54] LABS: ALKALINE PHOSPHATASE 54 U/L (45-117); BILIRUBIN,TOTAL 0.2 mg/dL (0.2-1.0); CREATININE 1.65 mg/dL (0.7-1.3); MD YES; TOTAL PROTEIN 7.9 g/dL (6.4-8.2)
[2017-09-24 12:00] LABS: BAND#(MANUAL) 1.98 x10^3/uL; BANDS%(MANUAL) 13 % (0-7); BASOS#(MANUAL) 0.15 x10^3/uL (0-0.1); BASOS% (MANUAL) 1 % (0-1); LYMPH#(MANUAL) 1.52 x10^3/uL (1-3.4); LYMPHS% (MANUAL) 10 % (22-44); METAMYELOCYTES# (MANUAL) 0.46 x10^3/uL (0-0); METAMYELOCYTES% (MANUAL) 3 % (0-1); MONOS#(MANUAL) 1.22 x10^3/uL (0.3-2.7); MONOS% (MANUAL) 8 % (2-9); REACTIVE LYMPHS % (MANUAL) 2 % (0-0); SEG#(MANUAL) 9.58 x10^3/uL (1.8-6.8); SEGS% (MANUAL) 63 % (42-75)
[2017-09-24] MEDS ORDERED: ONDANSETRON ODT 4 MG PO ONE (12:00)
[2017-09-24] MEDS ORDERED: SODIUM CHLORIDE 0.9% 1,000ML IVBOLUS ONE (12:00)
[2017-09-24] MEDS ORDERED: SODIUM CHLORIDE FLUSH 10ML SYR IVF ONE (12:00)
[2017-09-24 12:01] LABS: <PLATELET ESTIMATE> ADEQUATE; ANISOCYTOSIS 1+; LARGE PLATELETS 1+
[2017-09-24] MEDS: MORPHINE SULFATE 4 MG/ML, 1ML IVPush PRN ×3 (12:27→22:21)
[2017-09-24] MEDS ORDERED: SODIUM CHLORIDE FLUSH 10ML SYR IVF PRN (13:30)
[2017-09-24] MEDS: SODIUM CHLORIDE 0.9% 1,000 ML IV SCH (13:44)
[2017-09-24] MEDS ORDERED: LABETALOL 5MG/ML, 20ML IVPush PRN (14:00)
[2017-09-24] MEDS ORDERED: ALBUTEROL SULFATE 2.5 MG/3 ML ONE (14:42)
[2017-09-24] MEDS ORDERED: ALBUTEROL SULFATE 2.5 MG/3 ML NPPB PRN (15:00)
[2017-09-24] MEDS ORDERED: ALBUTEROL SULFATE 2.5 MG/3 ML NPPB SCH (15:00)
[2017-09-24] MEDS: ALBUTEROL/IPRATROPIUM 2.5MG/0.5MG, 3 ML NPPB SCH (15:00)
[2017-09-24 16:47] LABS: CLOSTRIDIUM DIFFICILE ANTIGEN NEGATIVE; CLOSTRIDIUM DIFFICILE TOXIN NEGATIVE (Negative)
[2017-09-24 16:55] LABS: MICROSCOPIC AUTO
[2017-09-24 16:58] LABS: CULTURE INDICATED? YES
[2017-09-24 17:07] VITALS: BP 108/72
[2017-09-24] MEDS: ONDANSETRON ODT 4 MG PO PRN (17:39)
[2017-09-24] MEDS ORDERED: MORPHINE SULFATE 4 MG/ML, 1ML IVPush PRN (18:00)
[2017-09-24 19:56] VITALS: BP 159/95
[2017-09-24] MEDS ORDERED: PROMETHAZINE 25 MG/ML, 1ML IM PRN (21:00)
[2017-09-24] MEDS: ONDANSETRON 2MG/ML, 2ML IVPush PRN (21:49)
[2017-09-24] MEDS: DIPHENOXYLATE/ATROPINE TABLET PO PRN (21:49)
[2017-09-24] MEDS: CARVEDILOL 6.25 MG TABLET PO SCH (21:50)
[2017-09-24] MEDS: CHOLECALCIFEROL 1,000 UNIT TABLET PO SCH (21:50)
[2017-09-25 01:51] VITALS: BP 102/70
[2017-09-25] MEDS: ONDANSETRON ODT 4 MG PO PRN (02:01)
[2017-09-25] MEDS: SODIUM CHLORIDE 0.9% 1,000 ML IV SCH ×3 (02:02→19:15)
[2017-09-25 05:16] LABS: ALBUMIN 2.4 g/dL (3.4-5.0); ANION GAP 6 mmol/L (5-15); CALCIUM 8.3 mg/dL (8.5-10.1); CHLORIDE 108 mmol/L (98-107)
[2017-09-25 05:20] LABS: MEAN CORPUSCULAR HEMOGLOBIN 31.1 pg (27.5-34.5); MEAN CORPUSCULAR HGB CONC 33.1 g/dL (33.2-36.2); MEAN CORPUSCULAR VOLUME 93.8 fL (81-97); MEAN PLATELET VOLUME 10.2 fL (7.4-10.4); PLATELET COUNT 133 x10^3/uL (130-400); RED CELL DISTRIBUTION WIDTH 16.2 % (9.4-14.8)
[2017-09-25 05:21] LABS: ALANINE AMINOTRANSFERASE 11 U/L (12-78); ALKALINE PHOSPHATASE 44 U/L (45-117); BILIRUBIN,TOTAL 0.6 mg/dL (0.2-1.0); CREATININE 1.47 mg/dL (0.7-1.3); TOTAL PROTEIN 6.5 g/dL (6.4-8.2)
[2017-09-25] MEDS: DIPHENOXYLATE/ATROPINE TABLET PO PRN (05:24)
[2017-09-25] MEDS: MORPHINE SULFATE 4 MG/ML, 1ML IVPush PRN (05:25)
[2017-09-25 06:01] LABS: MD YES
[2017-09-25 06:02] LABS: BANDS%(MANUAL) 8 % (0-7); LYMPH#(MANUAL) 1.31 x10^3/uL (1-3.4); LYMPHS% (MANUAL) 5 % (22-44); MONOS#(MANUAL) 3.41 x10^3/uL (0.3-2.7); MONOS% (MANUAL) 13 % (2-9); SEG#(MANUAL) 19.39 x10^3/uL (1.8-6.8); SEGS% (MANUAL) 74 % (42-75)
[2017-09-25 06:03] LABS: ANISOCYTOSIS 1+
[2017-09-25 06:05] LABS: <PLATELET ESTIMATE> ADEQUATE; LARGE PLATELETS 1+
[2017-09-25] MEDS: ALBUTEROL/IPRATROPIUM 2.5MG/0.5MG, 3 ML NPPB SCH ×4 (06:30→18:29)
[2017-09-25] MEDS: TAMSULOSIN 0.4 MG CAP.ER.24H PO SCH (08:18)
[2017-09-25] MEDS: SERTRALINE 50MG TABLET PO SCH (08:18)
[2017-09-25] MEDS: CARVEDILOL 6.25 MG TABLET PO SCH ×2 (08:18→21:00)
[2017-09-25] MEDS: CHOLECALCIFEROL 1,000 UNIT TABLET PO SCH ×2 (08:18→21:52)
[2017-09-25] MEDS: TEMPLATE NON-FORMULARY MED. (Budesonide/Formoterol Fumarate (Symbicort 160-4.5 Mcg Inhaler INH SCH (08:19)
[2017-09-25 08:51] LABS: % IRON SATURATION 6 % (20-55); IRON LEVEL 14 mcg/dL (65-175); TOTAL IRON BINDING CAPACITY 224 mcg/dL (250-450)
[2017-09-25 09:23] VITALS: BP 89/59
[2017-09-25] MEDS ORDERED: SODIUM CHLORIDE 0.9% 1,000 ML IV SCH (09:30)
[2017-09-25 10:50] VITALS: BP 105/49
[2017-09-25] MEDS: IRON SUCROSE COMPLEX 100MG/5ML IV SCH (11:16)
[2017-09-25] MEDS: CEFTRIAXONE PMX 1GM/50ML 50 ML IV SCH (11:16)
[2017-09-25] MEDS: METRONIDAZOLE PMX 500MG/100ML 100 ML IV SCH ×2 (13:18→21:50)
[2017-09-25 13:31] LABS: OCCULT BLOOD POSITIVE (NEGATIVE)
[2017-09-25 15:18] VITALS: BP 92/60
[2017-09-25] MEDS ORDERED: MOVIPREP POWDER 1 PREP KIT PO ONE (18:00)
[2017-09-25 19:42] VITALS: BP 91/56
[2017-09-26] MEDS: ONDANSETRON 2MG/ML, 2ML IVPush PRN (00:26)
[2017-09-26 00:42] VITALS: BP 106/56
[2017-09-26 04:18] LABS: MEAN CORPUSCULAR HEMOGLOBIN 30.9 pg (27.5-34.5); MEAN CORPUSCULAR HGB CONC 32.8 g/dL (33.2-36.2); MEAN CORPUSCULAR VOLUME 94.3 fL (81-97); MEAN PLATELET VOLUME 9.2 fL (7.4-10.4); PLATELET COUNT 113 x10^3/uL (130-400); RED BLOOD COUNT 3.18 x10^6/uL (4.38-5.82); RED CELL DISTRIBUTION WIDTH 16.6 % (9.4-14.8)
[2017-09-26 04:28] LABS: ALANINE AMINOTRANSFERASE 11 U/L (12-78); ALBUMIN 2.2 g/dL (3.4-5.0); ANION GAP 8 mmol/L (5-15); CALCIUM 7.9 mg/dL (8.5-10.1); CHLORIDE 111 mmol/L (98-107); CREATININE 1.66 mg/dL (0.7-1.3)
[2017-09-26 04:30] LABS: ALKALINE PHOSPHATASE 51 U/L (45-117); BILIRUBIN,TOTAL 0.3 mg/dL (0.2-1.0); TOTAL PROTEIN 6.2 g/dL (6.4-8.2)
[2017-09-26 04:37] LABS: MD YES
[2017-09-26 04:39] LABS: BAND#(MANUAL) 3.25 x10^3/uL; BANDS%(MANUAL) 9 % (0-7); LYMPH#(MANUAL) 1.81 x10^3/uL (1-3.4); LYMPHS% (MANUAL) 5 % (22-44); MONOS#(MANUAL) 6.14 x10^3/uL (0.3-2.7); MONOS% (MANUAL) 17 % (2-9); SEG#(MANUAL) 24.91 x10^3/uL (1.8-6.8); SEGS% (MANUAL) 69 % (42-75)
[2017-09-26 04:40] LABS: <PLATELET ESTIMATE> ADEQUATE; ANISOCYTOSIS 1+; LARGE PLATELETS 1+
[2017-09-26] MEDS: METRONIDAZOLE PMX 500MG/100ML 100 ML IV SCH ×3 (05:08→20:59)
[2017-09-26] MEDS: SODIUM CHLORIDE 0.9% 1,000 ML IV SCH ×2 (05:10→20:59)
[2017-09-26] MEDS: ONDANSETRON ODT 4 MG PO PRN ×2 (05:13→11:02)
[2017-09-26] MEDS: ALBUTEROL/IPRATROPIUM 2.5MG/0.5MG, 3 ML NPPB SCH ×4 (07:00→19:40)
[2017-09-26 07:16] VITALS: BP 106/67
[2017-09-26] MEDS: TEMPLATE NON-FORMULARY MED. (Budesonide/Formoterol Fumarate (Symbicort 160-4.5 Mcg Inhaler INH SCH (09:00)
[2017-09-26] MEDS ORDERED: PROPOFOL 10 MG/ML, 20ML ONE (09:55)
[2017-09-26] MEDS ORDERED: ONDANSETRON ODT 4 MG ONE (11:01)
[2017-09-26] MEDS: CHOLECALCIFEROL 1,000 UNIT TABLET PO SCH ×2 (11:42→20:59)
[2017-09-26] MEDS: CARVEDILOL 6.25 MG TABLET PO SCH ×2 (11:43→20:59)
[2017-09-26] MEDS: TAMSULOSIN 0.4 MG CAP.ER.24H PO SCH (11:44)
[2017-09-26] MEDS: SERTRALINE 50MG TABLET PO SCH (11:44)
[2017-09-26] MEDS: CEFTRIAXONE PMX 1GM/50ML 50 ML IV SCH (11:46)
[2017-09-26] MEDS: IRON SUCROSE COMPLEX 100MG/5ML IV SCH (11:47)
[2017-09-26 12:51] VITALS: BP 95/62
[2017-09-26] MEDS: MORPHINE SULFATE 4 MG/ML, 1ML IVPush PRN (14:56)
[2017-09-26] MEDS: MICAFUNGIN 100 MG in SODIUM CHLORIDE 0.9% 100 ML IV SCH (15:32)
[2017-09-26 17:19] LABS: MEAN CORPUSCULAR HEMOGLOBIN 30.8 pg (27.5-34.5); MEAN CORPUSCULAR HGB CONC 32.3 g/dL (33.2-36.2); MEAN CORPUSCULAR VOLUME 95.6 fL (81-97); MEAN PLATELET VOLUME 9.8 fL (7.4-10.4); PLATELET COUNT 107 x10^3/uL (130-400); RED BLOOD COUNT 3.02 x10^6/uL (4.38-5.82)
[2017-09-26 20:00] VITALS: BP 106/70
[2017-09-26 21:00] VITALS: BP 107/67
[2017-09-27 01:45] VITALS: BP 97/54
[2017-09-27] MEDS: MORPHINE SULFATE 4 MG/ML, 1ML IVPush PRN (02:34)
[2017-09-27] MEDS: METRONIDAZOLE PMX 500MG/100ML 100 ML IV SCH ×3 (05:07→21:15)
[2017-09-27 05:17] LABS: CHLORIDE 114 mmol/L (98-107)
[2017-09-27 05:25] LABS: ALANINE AMINOTRANSFERASE 11 U/L (12-78); ALBUMIN 2.1 g/dL (3.4-5.0); ALKALINE PHOSPHATASE 48 U/L (45-117); ANION GAP 9 mmol/L (5-15); BILIRUBIN,TOTAL 0.6 mg/dL (0.2-1.0); CALCIUM 7.7 mg/dL (8.5-10.1); CREATININE 1.36 mg/dL (0.7-1.3); TOTAL PROTEIN 5.7 g/dL (6.4-8.2)
[2017-09-27 05:52] LABS: MD YES; MEAN CORPUSCULAR HEMOGLOBIN 31.1 pg (27.5-34.5); MEAN CORPUSCULAR HGB CONC 32.5 g/dL (33.2-36.2); MEAN CORPUSCULAR VOLUME 95.8 fL (81-97); MEAN PLATELET VOLUME 10.3 fL (7.4-10.4); PLATELET COUNT 98 x10^3/uL (130-400); RED BLOOD COUNT 3.14 x10^6/uL (4.38-5.82); RED CELL DISTRIBUTION WIDTH 17.2 % (9.4-14.8)
[2017-09-27 05:55] LABS: ANISOCYTOSIS 1+; LYMPH#(MANUAL) 3.25 x10^3/uL (1-3.4); LYMPHS% (MANUAL) 16 % (22-44); METAMYELOCYTES# (MANUAL) 2.03 x10^3/uL (0-0); METAMYELOCYTES% (MANUAL) 10 % (0-1); MONOS#(MANUAL) 3.25 x10^3/uL (0.3-2.7); MONOS% (MANUAL) 16 % (2-9); SEG#(MANUAL) 11.77 x10^3/uL (1.8-6.8); SEGS% (MANUAL) 58 % (42-75)
[2017-09-27 05:56] LABS: <PLATELET ESTIMATE> DECREASED; <PLT MORPHOLOGY> NORMAL PLT MORPH
[2017-09-27] MEDS: ALBUTEROL/IPRATROPIUM 2.5MG/0.5MG, 3 ML NPPB SCH ×4 (06:50→19:29)
[2017-09-27 08:36] VITALS: BP 117/68
[2017-09-27] MEDS: TEMPLATE NON-FORMULARY MED. (Budesonide/Formoterol Fumarate (Symbicort 160-4.5 Mcg Inhaler INH SCH (09:00)
[2017-09-27] MEDS: TAMSULOSIN 0.4 MG CAP.ER.24H PO SCH (10:05)
[2017-09-27] MEDS: CHOLECALCIFEROL 1,000 UNIT TABLET PO SCH ×2 (10:05→21:11)
[2017-09-27] MEDS: SERTRALINE 50MG TABLET PO SCH (10:06)
[2017-09-27] MEDS: IRON SUCROSE COMPLEX 100MG/5ML IV SCH (10:06)
[2017-09-27] MEDS: CARVEDILOL 6.25 MG TABLET PO SCH ×2 (10:06→21:11)
[2017-09-27] MEDS: SODIUM CHLORIDE 0.9% 1,000 ML IV SCH ×2 (10:07→21:15)
[2017-09-27 13:59] VITALS: BP 120/72
[2017-09-27] MEDS: MICAFUNGIN 100 MG in SODIUM CHLORIDE 0.9% 100 ML IV SCH (15:55)
[2017-09-27 19:41] VITALS: BP 115/78
[2017-09-27] MEDS: GUAIFENESIN/DM 200-20MG, 10ML UDC PO PRN (21:11)
[2017-09-28 01:13] VITALS: BP 98/66
[2017-09-28] MEDS: MORPHINE SULFATE 4 MG/ML, 1ML IVPush PRN (04:37)
[2017-09-28] MEDS: ONDANSETRON 2MG/ML, 2ML IVPush PRN (04:37)
[2017-09-28] MEDS: METRONIDAZOLE PMX 500MG/100ML 100 ML IV SCH ×3 (04:37→22:33)
[2017-09-28 04:45] LABS: MEAN CORPUSCULAR HEMOGLOBIN 31.1 pg (27.5-34.5); MEAN CORPUSCULAR HGB CONC 32.6 g/dL (33.2-36.2); MEAN CORPUSCULAR VOLUME 95.4 fL (81-97); MEAN PLATELET VOLUME 10.9 fL (7.4-10.4); PLATELET COUNT 113 x10^3/uL (130-400); RED BLOOD COUNT 3.33 x10^6/uL (4.38-5.82)
[2017-09-28 04:54] LABS: ALANINE AMINOTRANSFERASE 10 U/L (12-78); ALBUMIN 2.2 g/dL (3.4-5.0); ANION GAP 11 mmol/L (5-15); CALCIUM 8.3 mg/dL (8.5-10.1); CHLORIDE 113 mmol/L (98-107); CREATININE 1.42 mg/dL (0.7-1.3)
[2017-09-28 04:57] LABS: ALKALINE PHOSPHATASE 52 U/L (45-117); BILIRUBIN,TOTAL 0.4 mg/dL (0.2-1.0); TOTAL PROTEIN 6.2 g/dL (6.4-8.2)
[2017-09-28 05:43] LABS: MD YES
[2017-09-28 05:46] LABS: BAND#(MANUAL) 1.53 x10^3/uL; BANDS%(MANUAL) 8 % (0-7); EOS#(MANUAL) 0.19 x10^3/uL (0.0-0.4); EOS% (MANUAL) 1 % (1-7); LYMPH#(MANUAL) 1.91 x10^3/uL (1-3.4); LYMPHS% (MANUAL) 10 % (22-44); METAMYELOCYTES# (MANUAL) 1.53 x10^3/uL (0-0); METAMYELOCYTES% (MANUAL) 8 % (0-1); MONOS#(MANUAL) 1.53 x10^3/uL (0.3-2.7); MONOS% (MANUAL) 8 % (2-9); MYELOCYTES# (MANUAL) 0.57 x10^3/uL (0-0); MYELOCYTES% (MANUAL) 3 % (0-0); SEG#(MANUAL) 11.84 x10^3/uL (1.8-6.8); SEGS% (MANUAL) 62 % (42-75)
[2017-09-28 05:47] LABS: ANISOCYTOSIS 1+; POLYCHROMASIA 1+
[2017-09-28 05:48] LABS: <PLATELET ESTIMATE> DECREASED; LARGE PLATELETS 1+
[2017-09-28] MEDS: GUAIFENESIN/DM 200-20MG, 10ML UDC PO PRN ×2 (06:15→20:11)
[2017-09-28] MEDS: ALBUTEROL/IPRATROPIUM 2.5MG/0.5MG, 3 ML NPPB SCH ×3 (06:35→19:55)
[2017-09-28 07:22] VITALS: BP 111/73
[2017-09-28] MEDS: TEMPLATE NON-FORMULARY MED. (Budesonide/Formoterol Fumarate (Symbicort 160-4.5 Mcg Inhaler INH SCH (09:00)
[2017-09-28] MEDS: SODIUM CHLORIDE 0.9% 1,000 ML IV SCH ×2 (09:21→20:14)
[2017-09-28] MEDS: IRON SUCROSE COMPLEX 100MG/5ML IV SCH (10:23)
[2017-09-28] MEDS: SERTRALINE 50MG TABLET PO SCH (10:24)
[2017-09-28] MEDS: CHOLECALCIFEROL 1,000 UNIT TABLET PO SCH ×2 (10:24→22:48)
[2017-09-28] MEDS: TAMSULOSIN 0.4 MG CAP.ER.24H PO SCH (10:24)
[2017-09-28] MEDS: CARVEDILOL 6.25 MG TABLET PO SCH ×2 (10:31→22:49)
[2017-09-28 12:39] VITALS: BP 116/77
[2017-09-28] MEDS: MICAFUNGIN 100 MG in SODIUM CHLORIDE 0.9% 100 ML IV SCH (15:00)
[2017-09-28 19:36] VITALS: BP 130/83
[2017-09-28] MEDS: DIPHENOXYLATE/ATROPINE TABLET PO PRN (20:11)
[2017-09-28] MEDS: ACETAMINOPHEN 325 MG TABLET PO PRN (20:11)
[2017-09-28] MEDS ORDERED: POTASSIUM CHLORIDE 20 MEQ TAB.ER.PRT PO ONE (22:00)
[2017-09-28] MEDS ORDERED: NS + 40MEQ KCL 1,000 ML IV SCH (22:00)
[2017-09-29 01:26] VITALS: BP 123/78
[2017-09-29] MEDS: ACETAMINOPHEN 325 MG TABLET PO PRN ×3 (05:38→22:08)
[2017-09-29] MEDS: DIPHENOXYLATE/ATROPINE TABLET PO PRN ×2 (05:38→22:08)
[2017-09-29] MEDS: GUAIFENESIN/DM 200-20MG, 10ML UDC PO PRN ×2 (05:38→22:08)
[2017-09-29 05:42] LABS: ANION GAP 6 mmol/L (5-15); CALCIUM 8.1 mg/dL (8.5-10.1); CHLORIDE 118 mmol/L (98-107)
[2017-09-29 05:43] LABS: CREATININE 1.11 mg/dL (0.7-1.3)
[2017-09-29] MEDS: METRONIDAZOLE PMX 500MG/100ML 100 ML IV SCH ×3 (06:18→22:08)
[2017-09-29] MEDS ORDERED: POTASSIUM PHOSPHATE 44 MEQ in SODIUM CHLORIDE 0.9% 500 ML IV ONE (06:30)
[2017-09-29] MEDS ORDERED: MAGNESIUM SULFATE PMX 4GM/100M 100 ML IV ONE (06:30)
[2017-09-29 07:01] LABS: MEAN CORPUSCULAR HEMOGLOBIN 31.6 pg (27.5-34.5); MEAN CORPUSCULAR HGB CONC 32.7 g/dL (33.2-36.2); MEAN CORPUSCULAR VOLUME 96.6 fL (81-97); MEAN PLATELET VOLUME 10.6 fL (7.4-10.4); PLATELET COUNT 117 x10^3/uL (130-400); RED BLOOD COUNT 2.79 x10^6/uL (4.38-5.82); RED CELL DISTRIBUTION WIDTH 16.9 % (9.4-14.8)
[2017-09-29 07:02] LABS: MD YES
[2017-09-29 07:05] LABS: BAND#(MANUAL) 1.63 x10^3/uL; BANDS%(MANUAL) 12 % (0-7); EOS#(MANUAL) 0.14 x10^3/uL (0.0-0.4); EOS% (MANUAL) 1 % (1-7); LYMPHS% (MANUAL) 11 % (22-44); METAMYELOCYTES# (MANUAL) 0.95 x10^3/uL (0-0); METAMYELOCYTES% (MANUAL) 7 % (0-1); MONOS#(MANUAL) 0.82 x10^3/uL (0.3-2.7); MONOS% (MANUAL) 6 % (2-9); MYELOCYTES# (MANUAL) 1.36 x10^3/uL (0-0); MYELOCYTES% (MANUAL) 10 % (0-0); SEG#(MANUAL) 7.21 x10^3/uL (1.8-6.8); SEGS% (MANUAL) 53 % (42-75)
[2017-09-29 07:06] LABS: <PLATELET ESTIMATE> DECREASED
[2017-09-29 07:08] LABS: ANISOCYTOSIS 1+; LARGE PLATELETS 1+; POLYCHROMASIA 1+
[2017-09-29 08:00] VITALS: BP 112/74
[2017-09-29] MEDS: ALBUTEROL/IPRATROPIUM 2.5MG/0.5MG, 3 ML NPPB SCH ×2 (08:20→21:00)
[2017-09-29] MEDS: TEMPLATE NON-FORMULARY MED. (Budesonide/Formoterol Fumarate (Symbicort 160-4.5 Mcg Inhaler INH SCH (09:00)
[2017-09-29] MEDS: SERTRALINE 50MG TABLET PO SCH (09:43)
[2017-09-29] MEDS: CARVEDILOL 6.25 MG TABLET PO SCH ×2 (09:43→22:09)
[2017-09-29] MEDS: TAMSULOSIN 0.4 MG CAP.ER.24H PO SCH (09:44)
[2017-09-29] MEDS: IRON SUCROSE COMPLEX 100MG/5ML IV SCH (09:44)
[2017-09-29] MEDS: CHOLECALCIFEROL 1,000 UNIT TABLET PO SCH ×2 (10:00→22:09)
[2017-09-29] MEDS: DEXTROSE 5% 1,000 ML IV SCH ×2 (10:20→22:08)
[2017-09-29] MEDS: FLUTICASONE/VILANTEROL 200-25MCG/INH INH SCH (12:53)
[2017-09-29 13:29] VITALS: BP 119/79
[2017-09-29] MEDS: MICAFUNGIN 100 MG in SODIUM CHLORIDE 0.9% 100 ML IV SCH (16:39)
[2017-09-29 19:10] VITALS: BP 124/82
[2017-09-30 01:28] VITALS: BP 126/58
[2017-09-30 01:44] VITALS: BP 116/78
[2017-09-30 04:46] LABS: MEAN CORPUSCULAR HEMOGLOBIN 30.8 pg (27.5-34.5); MEAN CORPUSCULAR HGB CONC 32.7 g/dL (33.2-36.2); MEAN CORPUSCULAR VOLUME 94.3 fL (81-97); RED BLOOD COUNT 2.71 x10^6/uL (4.38-5.82); RED CELL DISTRIBUTION WIDTH 17.3 % (9.4-14.8)
[2017-09-30 04:52] LABS: ALBUMIN 1.9 g/dL (3.4-5.0); ANION GAP 6 mmol/L (5-15); CALCIUM 7.9 mg/dL (8.5-10.1); CHLORIDE 116 mmol/L (98-107)
[2017-09-30 05:57] LABS: MD YES
[2017-09-30 06:01] LABS: MEAN PLATELET VOLUME 9.7 fL (7.4-10.4); PLATELET COUNT 118 x10^3/uL (130-400)
[2017-09-30 06:03] LABS: <PLATELET ESTIMATE> DECREASED; ANISOCYTOSIS 1+; BAND#(MANUAL) 0.24 x10^3/uL; BANDS%(MANUAL) 2 % (0-7); EOS#(MANUAL) 0.24 x10^3/uL (0.0-0.4); EOS% (MANUAL) 2 % (1-7); LYMPH#(MANUAL) 0.94 x10^3/uL (1-3.4); LYMPHS% (MANUAL) 8 % (22-44); METAMYELOCYTES# (MANUAL) 0.47 x10^3/uL (0-0); METAMYELOCYTES% (MANUAL) 4 % (0-1); MONOS#(MANUAL) 0.94 x10^3/uL (0.3-2.7); MONOS% (MANUAL) 8 % (2-9); POLYCHROMASIA 1+; SEG#(MANUAL) 8.97 x10^3/uL (1.8-6.8); SEGS% (MANUAL) 76 % (42-75)
[2017-09-30 06:04] LABS: LARGE PLATELETS 1+
[2017-09-30] MEDS: METRONIDAZOLE PMX 500MG/100ML 100 ML IV SCH ×3 (06:33→21:00)
[2017-09-30] MEDS: GUAIFENESIN/DM 200-20MG, 10ML UDC PO PRN (06:34)
[2017-09-30] MEDS: DIPHENOXYLATE/ATROPINE TABLET PO PRN (06:34)
[2017-09-30] MEDS: ACETAMINOPHEN 325 MG TABLET PO PRN (06:34)
[2017-09-30 07:56] VITALS: BP 137/85
[2017-09-30] MEDS: FLUTICASONE/VILANTEROL 200-25MCG/INH INH SCH (08:51)
[2017-09-30] MEDS: IRON SUCROSE COMPLEX 100MG/5ML IV SCH (08:51)
[2017-09-30] MEDS: TAMSULOSIN 0.4 MG CAP.ER.24H PO SCH (08:51)
[2017-09-30] MEDS: SERTRALINE 50MG TABLET PO SCH (08:51)
[2017-09-30] MEDS: CARVEDILOL 6.25 MG TABLET PO SCH ×2 (08:52→21:00)
[2017-09-30] MEDS: DEXTROSE 5% 1,000 ML IV SCH (08:52)
[2017-09-30] MEDS: CHOLECALCIFEROL 1,000 UNIT TABLET PO SCH ×2 (08:52→21:00)
[2017-09-30] MEDS: ALBUTEROL/IPRATROPIUM 2.5MG/0.5MG, 3 ML NPPB SCH ×2 (09:00→21:00)
[2017-09-30] MEDS ORDERED: POTASSIUM PHOSPHATE 44 MEQ in SODIUM CHLORIDE 0.9% 500 ML IV ONE (10:00)
[2017-09-30 13:49] VITALS: BP 120/53
[2017-09-30] MEDS ORDERED: POTASSIUM CHLORIDE 20 MEQ TAB.ER.PRT PO ONE (15:00)
[2017-09-30] MEDS: MICAFUNGIN 100 MG in SODIUM CHLORIDE 0.9% 100 ML IV SCH (15:37)
[2017-09-30] MEDS ORDERED: PHENOL THROAT SPRAY BOTTLE MM PRN (19:30)
[2017-09-30 20:48] VITALS: BP 126/58
[2017-10-01 01:32] VITALS: BP 118/54
[2017-10-01] MEDS: DEXTROSE 5% 1,000 ML IV SCH ×2 (01:59→14:43)
[2017-10-01] MEDS: METRONIDAZOLE PMX 500MG/100ML 100 ML IV SCH ×2 (05:24→14:00)
[2017-10-01] MEDS: FLUTICASONE/VILANTEROL 200-25MCG/INH INH SCH (06:33)
[2017-10-01 08:10] VITALS: BP 160/94
[2017-10-01] MEDS: IRON SUCROSE COMPLEX 100MG/5ML IV SCH ×2 (09:00→09:57)
[2017-10-01] MEDS: ALBUTEROL/IPRATROPIUM 2.5MG/0.5MG, 3 ML NPPB SCH (09:00)
[2017-10-01] MEDS: CHOLECALCIFEROL 1,000 UNIT TABLET PO SCH (09:55)
[2017-10-01] MEDS: TAMSULOSIN 0.4 MG CAP.ER.24H PO SCH (09:55)
[2017-10-01] MEDS: CARVEDILOL 6.25 MG TABLET PO SCH (09:56)
[2017-10-01] MEDS: SERTRALINE 50MG TABLET PO SCH (09:56)
[2017-10-01] MEDS ORDERED: METR500T PO (10:08)
[2017-10-01] MEDS ORDERED: TRAM50TA2 PO (10:08)
[2017-10-01] MEDS: MICAFUNGIN 100 MG in SODIUM CHLORIDE 0.9% 100 ML IV SCH (14:43)
[2017-10-01 14:50] VITALS: BP 121/78
== END 2017-10-01 16:54 | DRG 871 ==
LOC: ED 11:44 → EDIP 13:04 → 3NW 17:02 → 3NE 10-01 05:16
PROVIDERS: ADMIT Internal Medicine; ATTEND Hospitalist
PROC: 0DBN8ZX Excision of Sigmoid Colon, Via Natural or Artificial Opening Endoscopic, Diagnostic (ICD-10-PCS; principal; 2017-09-26 09:45)
DX: A41.9 Sepsis, unspecified organism (principal); K57.31 Diverticulosis of large intestine without perforation or abscess with bleeding; K55.039 Acute (reversible) ischemia of large intestine, extent unspecified; E43 Unspecified severe protein-calorie malnutrition; N17.0 Acute kidney failure with tubular necrosis; J44.1 Chronic obstructive pulmonary disease with (acute) exacerbation; J96.10 Chronic respiratory failure, unspecified whether with hypoxia or hypercapnia; J98.11 Atelectasis; B37.49 Other urogenital candidiasis; E87.2 Acidosis; I13.0 Hypertensive heart and chronic kidney disease with heart failure and stage 1 through stage 4 chronic kidney disease, or unspecified chronic kidney disease; K56.7 Ileus, unspecified; K63.3 Ulcer of intestine; N30.90 Cystitis, unspecified without hematuria; F32.9 Major depressive disorder, single episode, unspecified; I95.9 Hypotension, unspecified; R53.81 Other malaise; D50.9 Iron deficiency anemia, unspecified; D63.8 Anemia in other chronic diseases classified elsewhere; Z68.20 Body mass index [BMI] 20.0-20.9, adult; E86.0 Dehydration; E87.6 Hypokalemia; I50.9 Heart failure, unspecified; N18.3 Chronic kidney disease, stage 3 (moderate); N40.0 Benign prostatic hyperplasia without lower urinary tract symptoms; Z87.01 Personal history of pneumonia (recurrent); Z87.891 Personal history of nicotine dependence; Z99.81 Dependence on supplemental oxygen
CPT/HCPCS: 36415; 74018; 74022; 74176; 80048; 80053; 81001; 82040; 82272; 82962; 83540; 83550; 83605; 83690; 83735; 84100; 85014; 85018; 85025; 85027; 87040; 87046; 87086; 87106; 87324; 87427; 88305; 89055; 93005; 94640; 99285; J0696; J1756; J2248; J2405; J2704; J7070; J7620; Q0162; J3475; J3480; J7030; J7040

== ENCOUNTER 2017-10-17 00:47 | Inpatient (IN) | payer MEDICARE, OTHER ==
[~2017-10-17] VITALS: Ht 177.8 cm; Wt 62.2 kg
[~2017-10-17 00:47] MED LIST changes: +METR500T PO; +TRAM50TA2 PO
[2017-10-17 01:56] LABS: MEAN CORPUSCULAR HEMOGLOBIN 31.2 pg (27.5-34.5); MEAN CORPUSCULAR HGB CONC 32.5 g/dL (33.2-36.2); MEAN CORPUSCULAR VOLUME 95.9 fL (81-97); MEAN PLATELET VOLUME 8.9 fL (7.4-10.4); PLATELET COUNT 237 x10^3/uL (130-400); RED BLOOD COUNT 3.77 x10^6/uL (4.38-5.82); RED CELL DISTRIBUTION WIDTH 19.4 % (9.4-14.8)
[2017-10-17 02:04] LABS: ALANINE AMINOTRANSFERASE 27 U/L (12-78); ANION GAP 2 mmol/L (5-15); CALCIUM 8.7 mg/dL (8.5-10.1); CHLORIDE 106 mmol/L (98-107)
[2017-10-17 02:06] LABS: ALKALINE PHOSPHATASE 51 U/L (45-117); BILIRUBIN,TOTAL 0.3 mg/dL (0.2-1.0); CREATININE 1.49 mg/dL (0.7-1.3); TOTAL PROTEIN 7.6 g/dL (6.4-8.2)
[2017-10-17 02:17] LABS: MD YES
[2017-10-17 02:22] LABS: ANISOCYTOSIS 1+; BAND#(MANUAL) 1.59 x10^3/uL; BANDS%(MANUAL) 5 % (0-7); EOS#(MANUAL) 0.32 x10^3/uL (0.0-0.4); EOS% (MANUAL) 1 % (1-7); LYMPH#(MANUAL) 2.22 x10^3/uL (1-3.4); LYMPHS% (MANUAL) 7 % (22-44); METAMYELOCYTES# (MANUAL) 0.95 x10^3/uL (0-0); METAMYELOCYTES% (MANUAL) 3 % (0-1); MONOS#(MANUAL) 2.85 x10^3/uL (0.3-2.7); MONOS% (MANUAL) 9 % (2-9); MYELOCYTES# (MANUAL) 1.27 x10^3/uL (0-0); MYELOCYTES% (MANUAL) 4 % (0-0); POLYCHROMASIA 1+; REACTIVE LYMPHS # (MANUAL) 0.32 x10^3/uL (0-0); REACTIVE LYMPHS % (MANUAL) 1 % (0-0); SEG#(MANUAL) 22.19 x10^3/uL (1.8-6.8); SEGS% (MANUAL) 70 % (42-75)
[2017-10-17 02:23] LABS: <PLATELET ESTIMATE> ADEQUATE
[2017-10-17 02:24] LABS: LARGE PLATELETS 1+
[2017-10-17 02:26] LABS: CLOSTRIDIUM DIFFICILE ANTIGEN POSITIVE; CLOSTRIDIUM DIFFICILE TOXIN POSITIVE (Negative)
[2017-10-17] MEDS ORDERED: METRONIDAZOLE PMX 500MG/100ML 100 ML IV ONE (02:30)
[2017-10-17] MEDS ORDERED: SODIUM CHLORIDE 0.9% 1,000ML IVBOLUS ONE (02:30)
[2017-10-17] MEDS ORDERED: METRONIDAZOLE PMX 500MG/100ML 100 ML ONE (02:31)
[2017-10-17] MEDS ORDERED: SODIUM CHLORIDE 0.9% 1,000 ML IV ONE (02:56)
[2017-10-17] MEDS ORDERED: ONDANSETRON 2MG/ML, 2ML IVPush PRN ×2 (03:00→03:30)
[2017-10-17] MEDS ORDERED: SODIUM CHLORIDE 0.9% 1,000 ML IV SCH (03:13)
[2017-10-17] MEDS ORDERED: ACETAMINOPHEN 325 MG TABLET PO PRN (03:30)
[2017-10-17] MEDS ORDERED: TEMAZEPAM 15 MG CAPSULE PO PRN (03:30)
[2017-10-17] MEDS ORDERED: ENOXAPARIN 40 MG/0.4 ML ONE (04:18)
[2017-10-17] MEDS: ENOXAPARIN 40 MG/0.4 ML SQ SCH (04:28)
[2017-10-17] MEDS: VANCOMYCIN 50 MG/ML ORAL SUSP PO SCH ×4 (04:39→21:03)
[2017-10-17 05:25] VITALS: BP 119/86
[2017-10-17] MEDS: LACTOBACILLUS 1GM/ PACKET PO SCH ×4 (05:48→21:02)
[2017-10-17] MEDS ORDERED: OMNIPAQUE 350 MG/ML, 100ML BOTTLE ONE (06:22)
[2017-10-17 07:06] VITALS: BP 120/76
[2017-10-17] MEDS: TAMSULOSIN 0.4 MG CAP.ER.24H PO SCH (08:48)
[2017-10-17] MEDS: ASPIRIN 81 MG TABLET EC PO SCH (08:48)
[2017-10-17] MEDS: FAMOTIDINE 20 MG TABLET PO SCH ×2 (08:48→21:02)
[2017-10-17] MEDS: SERTRALINE 50MG TABLET PO SCH (08:48)
[2017-10-17] MEDS: SODIUM CHLORIDE 0.9% 1,000 ML IV SCH ×2 (08:49→15:44)
[2017-10-17 13:34] VITALS: BP 128/79
[2017-10-17] MEDS: FLUTICASONE/VILANTEROL 100-25MCG/INH INH SCH (15:43)
[2017-10-17 16:12] LABS: MICROSCOPIC AUTO
[2017-10-17 16:35] LABS: CULTURE INDICATED? NO
[2017-10-17 19:07] VITALS: BP 109/78
[2017-10-18 01:28] VITALS: BP 159/96
[2017-10-18] MEDS: SODIUM CHLORIDE 0.9% 1,000 ML IV SCH (03:47)
[2017-10-18] MEDS: VANCOMYCIN 50 MG/ML ORAL SUSP PO SCH ×4 (03:48→21:28)
[2017-10-18] MEDS: ENOXAPARIN 40 MG/0.4 ML SQ SCH (03:49)
[2017-10-18] MEDS: LACTOBACILLUS 1GM/ PACKET PO SCH ×4 (05:42→21:19)
[2017-10-18 05:47] LABS: CHLORIDE 111 mmol/L (98-107)
[2017-10-18 05:58] LABS: % IRON SATURATION 32 % (20-55); ALANINE AMINOTRANSFERASE 19 U/L (12-78); ALBUMIN 2.3 g/dL (3.4-5.0); ALKALINE PHOSPHATASE 38 U/L (45-117); ANION GAP 8 mmol/L (5-15); BILIRUBIN,TOTAL 0.3 mg/dL (0.2-1.0); CALCIUM 8.1 mg/dL (8.5-10.1); CREATININE 1.04 mg/dL (0.7-1.3); IRON LEVEL 40 mcg/dL (65-175); TOTAL IRON BINDING CAPACITY 125 mcg/dL (250-450); TOTAL PROTEIN 6.1 g/dL (6.4-8.2)
[2017-10-18 07:27] LABS: MEAN CORPUSCULAR HGB CONC 32.4 g/dL (33.2-36.2); MEAN CORPUSCULAR VOLUME 95.6 fL (81-97); MEAN PLATELET VOLUME 9.1 fL (7.4-10.4); PLATELET COUNT 175 x10^3/uL (130-400); RED BLOOD COUNT 3.11 x10^6/uL (4.38-5.82); RED CELL DISTRIBUTION WIDTH 18.9 % (9.4-14.8)
[2017-10-18 07:28] LABS: MD YES
[2017-10-18 07:43] LABS: LYMPH#(MANUAL) 2.11 x10^3/uL (1-3.4); LYMPHS% (MANUAL) 22 % (22-44); METAMYELOCYTES# (MANUAL) 0.19 x10^3/uL (0-0); METAMYELOCYTES% (MANUAL) 2 % (0-1); MYELOCYTES# (MANUAL) 0.19 x10^3/uL (0-0); MYELOCYTES% (MANUAL) 2 % (0-0)
[2017-10-18 07:44] LABS: MONOS#(MANUAL) 0.77 x10^3/uL (0.3-2.7); MONOS% (MANUAL) 8 % (2-9)
[2017-10-18 07:45] LABS: BAND#(MANUAL) 0.67 x10^3/uL; BANDS%(MANUAL) 7 % (0-7); EOS% (MANUAL) 1 % (1-7); SEG#(MANUAL) 5.57 x10^3/uL (1.8-6.8); SEGS% (MANUAL) 58 % (42-75)
[2017-10-18 07:46] LABS: <PLATELET ESTIMATE> ADEQUATE; ANISOCYTOSIS 1+; LARGE PLATELETS 1+; POLYCHROMASIA 1+
[2017-10-18] MEDS: TAMSULOSIN 0.4 MG CAP.ER.24H PO SCH (09:39)
[2017-10-18] MEDS: SERTRALINE 50MG TABLET PO SCH (09:39)
[2017-10-18] MEDS: FAMOTIDINE 20 MG TABLET PO SCH ×2 (09:39→21:22)
[2017-10-18] MEDS: ASPIRIN 81 MG TABLET EC PO SCH (09:39)
[2017-10-18] MEDS: FLUTICASONE/VILANTEROL 100-25MCG/INH INH SCH (09:40)
[2017-10-18] MEDS ORDERED: MAGNESIUM SULFATE PMX 2GM/50ML 50 ML IV ONE (14:00)
[2017-10-18 14:32] VITALS: BP 150/91
[2017-10-18] MEDS: POTASSIUM CHLORIDE 20 MEQ TAB.ER.PRT PO SCH ×2 (15:31→17:31)
[2017-10-18 18:37] VITALS: BP 154/81
[2017-10-19 01:02] VITALS: BP 134/90
[2017-10-19] MEDS: ENOXAPARIN 40 MG/0.4 ML SQ SCH (04:21)
[2017-10-19] MEDS: VANCOMYCIN 50 MG/ML ORAL SUSP PO SCH ×4 (04:21→20:28)
[2017-10-19 05:15] LABS: MEAN CORPUSCULAR HEMOGLOBIN 31.6 pg (27.5-34.5); MEAN CORPUSCULAR HGB CONC 33.1 g/dL (33.2-36.2); MEAN CORPUSCULAR VOLUME 95.5 fL (81-97); MEAN PLATELET VOLUME 9.1 fL (7.4-10.4); PLATELET COUNT 136 x10^3/uL (130-400); RED BLOOD COUNT 3.15 x10^6/uL (4.38-5.82); RED CELL DISTRIBUTION WIDTH 18.2 % (9.4-14.8)
[2017-10-19 05:21] LABS: ALBUMIN 2.4 g/dL (3.4-5.0); ANION GAP 5 mmol/L (5-15); CALCIUM 7.7 mg/dL (8.5-10.1); CHLORIDE 111 mmol/L (98-107)
[2017-10-19 05:26] LABS: ALANINE AMINOTRANSFERASE 19 U/L (12-78); ALKALINE PHOSPHATASE 41 U/L (45-117); BILIRUBIN,TOTAL 0.3 mg/dL (0.2-1.0); CREATININE 0.93 mg/dL (0.7-1.3); TOTAL PROTEIN 6.1 g/dL (6.4-8.2)
[2017-10-19] MEDS: LACTOBACILLUS 1GM/ PACKET PO SCH ×4 (05:32→20:28)
[2017-10-19] MEDS: PHENOL THROAT SPRAY BOTTLE MM PRN ×3 (05:33→20:28)
[2017-10-19] MEDS: SODIUM CHLORIDE 0.9% 1,000 ML IV SCH ×2 (05:33→20:28)
[2017-10-19 05:39] LABS: MD YES
[2017-10-19 05:41] LABS: BAND#(MANUAL) 0.08 x10^3/uL; BANDS%(MANUAL) 1 % (0-7); EOS#(MANUAL) 0.08 x10^3/uL (0.0-0.4); EOS% (MANUAL) 1 % (1-7); LYMPHS% (MANUAL) 39 % (22-44); METAMYELOCYTES# (MANUAL) 0.08 x10^3/uL (0-0); METAMYELOCYTES% (MANUAL) 1 % (0-1); MONOS#(MANUAL) 0.92 x10^3/uL (0.3-2.7); MONOS% (MANUAL) 12 % (2-9); MYELOCYTES# (MANUAL) 0.31 x10^3/uL (0-0); MYELOCYTES% (MANUAL) 4 % (0-0); SEG#(MANUAL) 3.23 x10^3/uL (1.8-6.8); SEGS% (MANUAL) 42 % (42-75)
[2017-10-19 05:42] LABS: <PLATELET ESTIMATE> ADEQUATE; ANISOCYTOSIS 1+; LARGE PLATELETS 1+; POLYCHROMASIA 1+; TOXIC GRAN 1+
[2017-10-19 07:18] VITALS: BP 153/92
[2017-10-19] MEDS ORDERED: MAGNESIUM SULFATE PMX 2GM/50ML 50 ML IV ONE (09:00)
[2017-10-19] MEDS: FLUTICASONE/VILANTEROL 100-25MCG/INH INH SCH (10:01)
[2017-10-19] MEDS: POTASSIUM PHOSPHATE 44 MEQ in SODIUM CHLORIDE 0.9% 500 ML IV SCH ×2 (10:01→15:00)
[2017-10-19] MEDS: SERTRALINE 50MG TABLET PO SCH (10:03)
[2017-10-19] MEDS: ASPIRIN 81 MG TABLET EC PO SCH (10:04)
[2017-10-19] MEDS: FAMOTIDINE 20 MG TABLET PO SCH ×2 (10:04→20:28)
[2017-10-19] MEDS: TAMSULOSIN 0.4 MG CAP.ER.24H PO SCH (10:13)
[2017-10-19 12:52] VITALS: BP 133/81
[2017-10-19 19:12] VITALS: BP 151/89
[2017-10-20 02:20] VITALS: BP 140/92
[2017-10-20] MEDS: VANCOMYCIN 50 MG/ML ORAL SUSP PO SCH ×4 (03:45→21:44)
[2017-10-20] MEDS: ENOXAPARIN 40 MG/0.4 ML SQ SCH (03:45)
[2017-10-20 05:37] LABS: CHLORIDE 111 mmol/L (98-107)
[2017-10-20 05:54] LABS: ANION GAP 7 mmol/L (5-15); CREATININE 1.17 mg/dL (0.7-1.3)
[2017-10-20] MEDS: LACTOBACILLUS 1GM/ PACKET PO SCH ×4 (06:12→21:27)
[2017-10-20 08:01] VITALS: BP 138/103
[2017-10-20] MEDS ORDERED: ACID1GRA3 PO (08:42)
[2017-10-20] MEDS ORDERED: VANC1VIA3 PO (08:42)
[2017-10-20] MEDS: FLUTICASONE/VILANTEROL 100-25MCG/INH INH SCH (09:13)
[2017-10-20] MEDS: SERTRALINE 50MG TABLET PO SCH (09:14)
[2017-10-20] MEDS: ASPIRIN 81 MG TABLET EC PO SCH (09:15)
[2017-10-20] MEDS: TAMSULOSIN 0.4 MG CAP.ER.24H PO SCH (09:15)
[2017-10-20] MEDS: FAMOTIDINE 20 MG TABLET PO SCH ×2 (09:15→21:27)
[2017-10-20] MEDS: SODIUM CHLORIDE 0.9% 1,000 ML IV SCH ×2 (09:16→17:42)
[2017-10-20 10:35] VITALS: BP 155/98
[2017-10-20 13:18] VITALS: BP 137/95
[2017-10-20 17:41] VITALS: BP 107/72
[2017-10-20 18:43] VITALS: BP 117/81
[2017-10-21 01:55] VITALS: BP 111/71
[2017-10-21] MEDS: ENOXAPARIN 40 MG/0.4 ML SQ SCH (04:06)
[2017-10-21] MEDS: VANCOMYCIN 50 MG/ML ORAL SUSP PO SCH ×3 (04:07→15:21)
[2017-10-21] MEDS: LACTOBACILLUS 1GM/ PACKET PO SCH ×3 (07:45→15:21)
[2017-10-21 08:10] VITALS: BP 114/68
[2017-10-21] MEDS: ASPIRIN 81 MG TABLET EC PO SCH (08:44)
[2017-10-21] MEDS: TAMSULOSIN 0.4 MG CAP.ER.24H PO SCH (08:44)
[2017-10-21] MEDS: SERTRALINE 50MG TABLET PO SCH (08:44)
[2017-10-21] MEDS: FAMOTIDINE 20 MG TABLET PO SCH (08:44)
[2017-10-21] MEDS: FLUTICASONE/VILANTEROL 100-25MCG/INH INH SCH (08:44)
[2017-10-21] MEDS: SODIUM CHLORIDE 0.9% 1,000 ML IV SCH (10:36)
[2017-10-21 12:40] VITALS: BP 130/85
[2017-10-21 14:59] VITALS: BP 132/80
== END 2017-10-21 15:39 | disposition home or self-care (01) | DRG 871 ==
LOC: ED 02:43 → EDIP 02:56 → 4NOR 05:17
PROVIDERS: ADMIT Internal Medicine; ATTEND Internal Medicine
DX: A41.4 Sepsis due to anaerobes (principal); E43 Unspecified severe protein-calorie malnutrition; N17.0 Acute kidney failure with tubular necrosis; A04.72 Enterocolitis due to Clostridium difficile, not specified as recurrent; J96.11 Chronic respiratory failure with hypoxia; Z68.1 Body mass index [BMI] 19.9 or less, adult; Z99.81 Dependence on supplemental oxygen; D64.9 Anemia, unspecified; I95.9 Hypotension, unspecified; J44.9 Chronic obstructive pulmonary disease, unspecified; N40.0 Benign prostatic hyperplasia without lower urinary tract symptoms; I70.0 Atherosclerosis of aorta; I11.0 Hypertensive heart disease with heart failure; E86.0 Dehydration; E83.39 Other disorders of phosphorus metabolism; F32.9 Major depressive disorder, single episode, unspecified; R53.81 Other malaise
CPT/HCPCS: 36415; 74177; 80048; 80053; 81001; 83540; 83550; 83690; 83735; 84100; 85025; 87040; 87324; 99291; J1650; J2405; J3370; Q9967; J3475; J7030; J7040

== ENCOUNTER 2018-02-03 07:01 | Inpatient (IN) | payer MEDICARE, OTHER ==
[~2018-02-03] VITALS: Ht 177.8 cm; Wt 68.8 kg
[~2018-02-03 07:01] MED LIST changes: +ACID1GRA3 PO; -FERR140T2 PO; +FERR140T3 PO; -IPRA3AMP NPPB; +IPRA3AMP30 NPPB; +VANC1VIA3 PO
[2018-02-03] MEDS ORDERED: SODIUM CHLORIDE 0.9% 1,000 ML IV ONE (07:06)
[2018-02-03] MEDS ORDERED: ACETAMINOPHEN 500 MG TABLET PO ONE (07:30)
[2018-02-03] MEDS ORDERED: CEFTRIAXONE PMX 1GM/50ML 50 ML IV ONE (07:30)
[2018-02-03] MEDS ORDERED: SODIUM CHLORIDE 0.9% 1,000ML IVBOLUS ONE (07:30)
[2018-02-03] MEDS ORDERED: SODIUM CHLORIDE FLUSH 10ML SYR IVF ONE (07:30)
[2018-02-03] MEDS ORDERED: CEFTRIAXONE PMX 1GM/50ML 50 ML ONE (07:30)
[2018-02-03] MEDS ORDERED: AZITHROMYCIN 500 MG in SODIUM CHLORIDE 0.9% 250 ML IVPB ONE (07:30)
[2018-02-03] MEDS ORDERED: ACETAMINOPHEN 500 MG TABLET ONE (07:30)
[2018-02-03 07:42] LABS: RAPID INFLUENZA A Negative (Negative); RAPID INFLUENZA B Negative (Negative)
[2018-02-03 07:45] LABS: ALANINE AMINOTRANSFERASE 16 U/L (12-78); ALBUMIN 2.7 g/dL (3.4-5.0); ANION GAP 3 mmol/L (5-15); CALCIUM 8.9 mg/dL (8.5-10.1); CHLORIDE 107 mmol/L (98-107); CREATININE 1.66 mg/dL (0.7-1.3)
[2018-02-03 07:50] LABS: ALKALINE PHOSPHATASE 46 U/L (45-117); BILIRUBIN,TOTAL 0.4 mg/dL (0.2-1.0); TOTAL PROTEIN 7.4 g/dL (6.4-8.2); TROPONIN I 0.025 ng/mL (0.000-0.045)
[2018-02-03 07:54] LABS: MEAN CORPUSCULAR HEMOGLOBIN 30.6 pg (27.5-34.5); MEAN CORPUSCULAR HGB CONC 32.3 g/dL (33.2-36.2); MEAN CORPUSCULAR VOLUME 94.8 fL (81-97); MEAN PLATELET VOLUME 8.8 fL (7.4-10.4); PLATELET COUNT 167 x10^3/uL (130-400); RED BLOOD COUNT 3.39 x10^6/uL (4.38-5.82); RED CELL DISTRIBUTION WIDTH 17.6 % (9.4-14.8)
[2018-02-03] MEDS ORDERED: MORPHINE SULFATE 4 MG/ML, 1ML IVPush PRN (08:00)
[2018-02-03] MEDS ORDERED: MORPHINE SULFATE 4 MG/ML, 1ML ONE (08:02)
[2018-02-03 08:17] LABS: MD YES
[2018-02-03 08:26] LABS: BAND#(MANUAL) 7.73 x10^3/uL; BANDS%(MANUAL) 25 % (0-7); LYMPH#(MANUAL) 0.62 x10^3/uL (1-3.4); LYMPHS% (MANUAL) 2 % (22-44); MONOS#(MANUAL) 1.55 x10^3/uL (0.3-2.7); MONOS% (MANUAL) 5 % (2-9); SEG#(MANUAL) 21.01 x10^3/uL (1.8-6.8); SEGS% (MANUAL) 68 % (42-75)
[2018-02-03 08:28] LABS: <PLATELET ESTIMATE> ADEQUATE; ANISOCYTOSIS 1+; LARGE PLATELETS 1+; STOMATOCYTES 1+
[2018-02-03] MEDS ORDERED: NOREPINEPHRINE 4 MG in SODIUM CHLORIDE 0.9% 246 ML IV PRN (08:30)
[2018-02-03] MEDS ORDERED: POLYETHYLENE GLYCOL 17 GM PACKET PO PRN (09:30)
[2018-02-03] MEDS ORDERED: ACETAMINOPHEN 325 MG TABLET PO PRN (09:30)
[2018-02-03] MEDS ORDERED: BISACODYL 10 MG SUPP PR PRN (09:30)
[2018-02-03] MEDS ORDERED: ONDANSETRON 2MG/ML, 2ML IVPush PRN (09:30)
[2018-02-03] MEDS ORDERED: DOCUSATE 100 MG CAPSULE PO PRN (09:30)
[2018-02-03] MEDS ORDERED: SODIUM CHLORIDE 0.9% 1,000 ML IV SCH (09:30)
[2018-02-03] MEDS ORDERED: LIDODERM 5% PATCH TD PRN (09:30)
[2018-02-03] MEDS ORDERED: ENOXAPARIN 40 MG/0.4 ML SQ SCH (09:30)
[2018-02-03] MEDS: CEFTRIAXONE PMX 1GM/50ML 50 ML IV SCH (09:41)
[2018-02-03] MEDS ORDERED: ENOXAPARIN 40 MG/0.4 ML ONE (09:51)
[2018-02-03] MEDS ORDERED: methylPREDNISolone SOD SUCC 125 MG/2 ML ONE (10:09)
[2018-02-03] MEDS: methylPREDNISolone SOD SUCC 125 MG/2 ML IVPush SCH ×3 (10:10→21:56)
[2018-02-03] MEDS: VANCOMYCIN 50 MG/ML ORAL SUSP PO SCH ×3 (10:23→21:56)
[2018-02-03] MEDS: DOXYCYCLINE 100 MG in DEXTROSE 5% 250 ML IV SCH ×2 (10:28→21:56)
[2018-02-03] MEDS ORDERED: ENOXAPARIN 30 MG/0.3 ML SQ SCH (11:13)
[2018-02-03] MEDS ORDERED: ALBUTEROL/IPRATROPIUM 2.5MG/0.5MG, 3 ML ONE (12:55)
[2018-02-03] MEDS: ALBUTEROL/IPRATROPIUM 2.5MG/0.5MG, 3 ML NPPB SCH ×2 (13:00→20:33)
[2018-02-03 13:29] LABS: CULTURE INDICATED? YES; MICROSCOPIC INDICATED
[2018-02-03] MEDS ORDERED: FENTANYL PF 100 MCG/2ML IVPush PRN (18:00)
[2018-02-03] MEDS ORDERED: SODIUM CHLORIDE 0.9% 1,000 ML IV PRN (19:30)
[2018-02-03] MEDS ORDERED: FAMOTIDINE 20 MG/2 ML IVPush SCH (21:00)
[2018-02-03 23:39] LABS: CLOSTRIDIUM DIFFICILE ANTIGEN NEGATIVE; CLOSTRIDIUM DIFFICILE TOXIN NEGATIVE (Negative)
[2018-02-04] MEDS: VANCOMYCIN 50 MG/ML ORAL SUSP PO SCH ×4 (01:43→21:50)
[2018-02-04] MEDS: methylPREDNISolone SOD SUCC 125 MG/2 ML IVPush SCH ×4 (03:49→21:50)
[2018-02-04 04:33] LABS: ALBUMIN 2.3 g/dL (3.4-5.0); ANION GAP 9 mmol/L (5-15); CALCIUM 8.2 mg/dL (8.5-10.1); CHLORIDE 106 mmol/L (98-107); MEAN CORPUSCULAR HEMOGLOBIN 30.3 pg (27.5-34.5); MEAN CORPUSCULAR HGB CONC 32.2 g/dL (33.2-36.2); MEAN PLATELET VOLUME 9.5 fL (7.4-10.4); PLATELET COUNT 144 x10^3/uL (130-400); RED BLOOD COUNT 2.94 x10^6/uL (4.38-5.82); RED CELL DISTRIBUTION WIDTH 17.9 % (9.4-14.8)
[2018-02-04 04:36] LABS: ALANINE AMINOTRANSFERASE 17 U/L (12-78); ALKALINE PHOSPHATASE 39 U/L (45-117); BILIRUBIN,TOTAL 0.2 mg/dL (0.2-1.0); CREATININE 1.62 mg/dL (0.7-1.3); TOTAL PROTEIN 6.9 g/dL (6.4-8.2)
[2018-02-04 05:42] LABS: MD YES
[2018-02-04 05:44] LABS: BAND#(MANUAL) 4.56 x10^3/uL; BANDS%(MANUAL) 12 % (0-7); LYMPH#(MANUAL) 1.14 x10^3/uL (1-3.4); LYMPHS% (MANUAL) 3 % (22-44); MONOS#(MANUAL) 0.76 x10^3/uL (0.3-2.7); MONOS% (MANUAL) 2 % (2-9); SEG#(MANUAL) 31.54 x10^3/uL (1.8-6.8); SEGS% (MANUAL) 83 % (42-75)
[2018-02-04 05:45] LABS: <PLATELET ESTIMATE> ADEQUATE; ANISOCYTOSIS 1+; LARGE PLATELETS 1+; TOXIC GRAN 1+
[2018-02-04 05:47] LABS: HYPOCHROMIA 1+
[2018-02-04] MEDS: ALBUTEROL/IPRATROPIUM 2.5MG/0.5MG, 3 ML NPPB SCH ×4 (07:00→19:26)
[2018-02-04] MEDS ORDERED: MAGNESIUM SULFATE PMX 2GM/50ML 50 ML IV ONE (09:00)
[2018-02-04] MEDS: FAMOTIDINE 20 MG/2 ML IVPush SCH (10:18)
[2018-02-04] MEDS: CEFTRIAXONE PMX 1GM/50ML 50 ML IV SCH (10:21)
[2018-02-04] MEDS: DOXYCYCLINE 100 MG in DEXTROSE 5% 250 ML IV SCH ×2 (11:22→21:50)
[2018-02-04] MEDS: ENOXAPARIN 40 MG/0.4 ML SQ SCH (11:24)
[2018-02-04] MEDS: FLUTICASONE/VILANTEROL 200-25MCG/INH INH SCH (11:25)
[2018-02-05] MEDS: methylPREDNISolone SOD SUCC 125 MG/2 ML IVPush SCH (03:34)
[2018-02-05 03:56] LABS: MEAN CORPUSCULAR HEMOGLOBIN 31.3 pg (27.5-34.5); MEAN CORPUSCULAR HGB CONC 32.8 g/dL (33.2-36.2); MEAN CORPUSCULAR VOLUME 95.3 fL (81-97); MEAN PLATELET VOLUME 9.3 fL (7.4-10.4); PLATELET COUNT 146 x10^3/uL (130-400); RED BLOOD COUNT 2.89 x10^6/uL (4.38-5.82)
[2018-02-05 04:04] LABS: ANION GAP 8 mmol/L (5-15); CALCIUM 8.3 mg/dL (8.5-10.1); CHLORIDE 108 mmol/L (98-107)
[2018-02-05 04:06] LABS: CREATININE 1.24 mg/dL (0.7-1.3)
[2018-02-05 04:21] LABS: BASOPHILS % (AUTO) 0 % (0-1); EOSINOPHILS % (AUTO) 0 % (1-7); LYMPHOCYTES # (AUTO) 0.61 x10^3/uL (1-3.4); LYMPHOCYTES % (AUTO) 2 % (22-44); MD SCAN; MONOCYTES # (AUTO) 0.49 x10^3/uL (0.2-0.8); MONOCYTES % (AUTO) 2 % (2-9); NEUTROPHILS % (AUTO) 96 % (42-75)
[2018-02-05] MEDS: ALBUTEROL/IPRATROPIUM 2.5MG/0.5MG, 3 ML NPPB SCH ×4 (07:00→18:54)
[2018-02-05] MEDS: FLUTICASONE/VILANTEROL 200-25MCG/INH INH SCH (09:07)
[2018-02-05] MEDS: DOXYCYCLINE 100 MG in DEXTROSE 5% 250 ML IV SCH ×2 (09:07→21:31)
[2018-02-05] MEDS: FAMOTIDINE 20 MG/2 ML IVPush SCH (09:07)
[2018-02-05] MEDS: CEFTRIAXONE PMX 1GM/50ML 50 ML IV SCH (09:07)
[2018-02-05] MEDS: VANCOMYCIN 50 MG/ML ORAL SUSP PO SCH ×3 (09:08→21:00)
[2018-02-05] MEDS: ENOXAPARIN 40 MG/0.4 ML SQ SCH (09:08)
[2018-02-05 22:46] VITALS: BP 178/96
[2018-02-06 00:23] VITALS: BP 160/85
[2018-02-06 01:45] VITALS: BP 143/77
[2018-02-06 05:38] LABS: ANION GAP 8 mmol/L (5-15); CALCIUM 9.2 mg/dL (8.5-10.1); CHLORIDE 107 mmol/L (98-107); CREATININE 1.26 mg/dL (0.7-1.3)
[2018-02-06 06:42] LABS: MD YES; MEAN CORPUSCULAR HEMOGLOBIN 31.3 pg (27.5-34.5); MEAN CORPUSCULAR HGB CONC 33.2 g/dL (33.2-36.2); MEAN CORPUSCULAR VOLUME 94.4 fL (81-97); MEAN PLATELET VOLUME 10.2 fL (7.4-10.4); PLATELET COUNT 195 x10^3/uL (130-400); RED BLOOD COUNT 3.29 x10^6/uL (4.38-5.82); RED CELL DISTRIBUTION WIDTH 18.5 % (9.4-14.8)
[2018-02-06 06:46] LABS: BAND#(MANUAL) 2.66 x10^3/uL; BANDS%(MANUAL) 10 % (0-7); LYMPH#(MANUAL) 2.39 x10^3/uL (1-3.4); LYMPHS% (MANUAL) 9 % (22-44); METAMYELOCYTES# (MANUAL) 0.27 x10^3/uL (0-0); METAMYELOCYTES% (MANUAL) 1 % (0-1); MONOS#(MANUAL) 2.39 x10^3/uL (0.3-2.7); MONOS% (MANUAL) 9 % (2-9); SEG#(MANUAL) 18.89 x10^3/uL (1.8-6.8); SEGS% (MANUAL) 71 % (42-75)
[2018-02-06 06:47] LABS: ANISOCYTOSIS 1+
[2018-02-06 06:48] LABS: <PLATELET ESTIMATE> ADEQUATE; LARGE PLATELETS 1+
[2018-02-06] MEDS: ALBUTEROL/IPRATROPIUM 2.5MG/0.5MG, 3 ML NPPB SCH ×4 (07:35→18:22)
[2018-02-06 08:00] VITALS: BP 135/87
[2018-02-06 08:23] VITALS: BP 154/95
[2018-02-06] MEDS: VANCOMYCIN 50 MG/ML ORAL SUSP PO SCH ×3 (08:28→20:33)
[2018-02-06] MEDS: FAMOTIDINE 20 MG/2 ML IVPush SCH (08:28)
[2018-02-06] MEDS: FLUTICASONE/VILANTEROL 200-25MCG/INH INH SCH (08:28)
[2018-02-06] MEDS: DOXYCYCLINE 100 MG in DEXTROSE 5% 250 ML IV SCH (11:32)
[2018-02-06] MEDS: CEFTRIAXONE PMX 1GM/50ML 50 ML IV SCH (11:32)
[2018-02-06] MEDS: ENOXAPARIN 40 MG/0.4 ML SQ SCH (11:39)
[2018-02-06] MEDS ORDERED: MAGNESIUM HYDROXIDE 8%, 30ML UDC PO PRN (13:30)
[2018-02-06] MEDS ORDERED: PINK LADY ENEMA 490 ML BOTTLE PR PRN (13:30)
[2018-02-06] MEDS ORDERED: LACTULOSE 20 GM/30 ML UDC PO PRN (13:30)
[2018-02-06] MEDS: PIPERACILLIN/TAZO/PMX 4.5GM 100 ML IV SCH ×2 (15:03→20:30)
[2018-02-06 21:13] VITALS: BP 149/93
[2018-02-07] MEDS: PIPERACILLIN/TAZO/PMX 4.5GM 100 ML IV SCH ×4 (02:04→20:00)
[2018-02-07 02:09] VITALS: BP 160/94
[2018-02-07 05:53] LABS: ANION GAP 8 mmol/L (5-15); CALCIUM 9.4 mg/dL (8.5-10.1); CHLORIDE 106 mmol/L (98-107); CREATININE 1.16 mg/dL (0.7-1.3)
[2018-02-07 05:55] LABS: MEAN CORPUSCULAR HEMOGLOBIN 30.9 pg (27.5-34.5); MEAN CORPUSCULAR HGB CONC 32.8 g/dL (33.2-36.2); MEAN CORPUSCULAR VOLUME 94.2 fL (81-97); MEAN PLATELET VOLUME 9.6 fL (7.4-10.4); PLATELET COUNT 187 x10^3/uL (130-400); RED BLOOD COUNT 3.18 x10^6/uL (4.38-5.82); RED CELL DISTRIBUTION WIDTH 18.5 % (9.4-14.8)
[2018-02-07 06:15] LABS: MD YES
[2018-02-07 06:19] LABS: <PLATELET ESTIMATE> ADEQUATE; ANISOCYTOSIS 1+; BAND#(MANUAL) 0.85 x10^3/uL; BANDS%(MANUAL) 6 % (0-7); LYMPH#(MANUAL) 3.38 x10^3/uL (1-3.4); LYMPHS% (MANUAL) 24 % (22-44); METAMYELOCYTES# (MANUAL) 0.56 x10^3/uL (0-0); METAMYELOCYTES% (MANUAL) 4 % (0-1); MONOS#(MANUAL) 0.71 x10^3/uL (0.3-2.7); MONOS% (MANUAL) 5 % (2-9); NRBC % (MANUAL) 1 % (0-1); SEGS% (MANUAL) 61 % (42-75)
[2018-02-07 06:20] LABS: <PLT MORPHOLOGY> NORMAL PLT MORPH
[2018-02-07 07:35] VITALS: BP 175/95
[2018-02-07] MEDS: ALBUTEROL/IPRATROPIUM 2.5MG/0.5MG, 3 ML NPPB SCH ×4 (07:55→20:00)
[2018-02-07] MEDS: VANCOMYCIN 50 MG/ML ORAL SUSP PO SCH ×3 (08:10→20:00)
[2018-02-07] MEDS: FAMOTIDINE 20 MG/2 ML IVPush SCH (08:10)
[2018-02-07] MEDS: FLUTICASONE/VILANTEROL 200-25MCG/INH INH SCH (08:10)
[2018-02-07] MEDS: ENOXAPARIN 40 MG/0.4 ML SQ SCH (10:43)
[2018-02-07 10:45] VITALS: BP 129/83
[2018-02-07] MEDS ORDERED: TAMSULOSIN 0.4 MG CAP.ER.24H PO ONE (14:00)
[2018-02-07 14:13] VITALS: BP 104/60
[2018-02-07 19:58] VITALS: BP 145/91
[2018-02-07] MEDS: GUAIFENESIN ER 600 MG TABLET PO SCH (20:00)
[2018-02-08] MEDS: PIPERACILLIN/TAZO/PMX 4.5GM 100 ML IV SCH ×4 (02:00→19:59)
[2018-02-08 02:39] VITALS: BP 125/83
[2018-02-08 06:01] LABS: MEAN CORPUSCULAR HEMOGLOBIN 31.4 pg (27.5-34.5); MEAN CORPUSCULAR VOLUME 94.9 fL (81-97); MEAN PLATELET VOLUME 9.2 fL (7.4-10.4); PLATELET COUNT 205 x10^3/uL (130-400); RED BLOOD COUNT 3.19 x10^6/uL (4.38-5.82); RED CELL DISTRIBUTION WIDTH 19.1 % (9.4-14.8)
[2018-02-08 06:05] LABS: ALBUMIN 2.4 g/dL (3.4-5.0); ANION GAP 9 mmol/L (5-15); CALCIUM 9.3 mg/dL (8.5-10.1); CHLORIDE 101 mmol/L (98-107)
[2018-02-08 06:14] LABS: MD YES
[2018-02-08 06:15] LABS: ALANINE AMINOTRANSFERASE 26 U/L (12-78); ALKALINE PHOSPHATASE 32 U/L (45-117); BILIRUBIN,TOTAL 0.4 mg/dL (0.2-1.0); CREATININE 1.44 mg/dL (0.7-1.3); TOTAL PROTEIN 6.7 g/dL (6.4-8.2)
[2018-02-08 06:19] LABS: BAND#(MANUAL) 1.03 x10^3/uL; BANDS%(MANUAL) 6 % (0-7); LYMPH#(MANUAL) 5.64 x10^3/uL (1-3.4); LYMPHS% (MANUAL) 33 % (22-44); METAMYELOCYTES# (MANUAL) 0.86 x10^3/uL (0-0); METAMYELOCYTES% (MANUAL) 5 % (0-1); MONOS#(MANUAL) 0.68 x10^3/uL (0.3-2.7); MONOS% (MANUAL) 4 % (2-9); MYELOCYTES# (MANUAL) 0.34 x10^3/uL (0-0); MYELOCYTES% (MANUAL) 2 % (0-0); NRBC % (MANUAL) 1 % (0-1); SEG#(MANUAL) 8.55 x10^3/uL (1.8-6.8); SEGS% (MANUAL) 50 % (42-75)
[2018-02-08 06:20] LABS: <PLATELET ESTIMATE> ADEQUATE; <PLT MORPHOLOGY> NORMAL PLT MORPH; ANISOCYTOSIS 1+; POLYCHROMASIA 1+
[2018-02-08 06:52] VITALS: BP 126/79
[2018-02-08] MEDS: ALBUTEROL/IPRATROPIUM 2.5MG/0.5MG, 3 ML NPPB SCH ×4 (07:08→19:40)
[2018-02-08] MEDS: GUAIFENESIN ER 600 MG TABLET PO SCH ×2 (08:28→19:59)
[2018-02-08] MEDS: VANCOMYCIN 50 MG/ML ORAL SUSP PO SCH ×3 (08:28→19:59)
[2018-02-08] MEDS: TAMSULOSIN 0.4 MG CAP.ER.24H PO SCH (08:28)
[2018-02-08] MEDS: FLUTICASONE/VILANTEROL 200-25MCG/INH INH SCH (08:28)
[2018-02-08] MEDS: FAMOTIDINE 20 MG/2 ML IVPush SCH (08:28)
[2018-02-08] MEDS: ENOXAPARIN 40 MG/0.4 ML SQ SCH (10:14)
[2018-02-08] MEDS ORDERED: MAGNESIUM SULFATE PMX 2GM/50ML 50 ML IV ONE (10:30)
[2018-02-08 13:01] VITALS: BP 114/78
[2018-02-08 20:00] VITALS: BP 103/67
[2018-02-09] MEDS: PIPERACILLIN/TAZO/PMX 4.5GM 100 ML IV SCH ×3 (02:06→14:00)
[2018-02-09 03:11] VITALS: BP 111/74
[2018-02-09 04:54] LABS: MEAN CORPUSCULAR HEMOGLOBIN 31.4 pg (27.5-34.5); MEAN CORPUSCULAR HGB CONC 32.9 g/dL (33.2-36.2); MEAN CORPUSCULAR VOLUME 95.4 fL (81-97); PLATELET COUNT 185 x10^3/uL (130-400); RED BLOOD COUNT 2.88 x10^6/uL (4.38-5.82); RED CELL DISTRIBUTION WIDTH 18.5 % (9.4-14.8)
[2018-02-09 05:00] LABS: ANION GAP 6 mmol/L (5-15); CALCIUM 8.7 mg/dL (8.5-10.1); CHLORIDE 103 mmol/L (98-107)
[2018-02-09 05:03] LABS: CREATININE 1.52 mg/dL (0.7-1.3)
[2018-02-09 05:50] LABS: MD YES
[2018-02-09 05:54] LABS: ANISOCYTOSIS 1+; BAND#(MANUAL) 0.17 x10^3/uL; BANDS%(MANUAL) 1 % (0-7); BASOS#(MANUAL) 0.17 x10^3/uL (0-0.1); BASOS% (MANUAL) 1 % (0-1); LYMPH#(MANUAL) 2.51 x10^3/uL (1-3.4); LYMPHS% (MANUAL) 15 % (22-44); MONOS#(MANUAL) 1.17 x10^3/uL (0.3-2.7); MONOS% (MANUAL) 7 % (2-9); MYELOCYTES# (MANUAL) 0.67 x10^3/uL (0-0); MYELOCYTES% (MANUAL) 4 % (0-0); SEG#(MANUAL) 12.02 x10^3/uL (1.8-6.8); SEGS% (MANUAL) 72 % (42-75)
[2018-02-09 05:55] LABS: <PLATELET ESTIMATE> ADEQUATE; <PLT MORPHOLOGY> NORMAL PLT MORPH
[2018-02-09 07:16] VITALS: BP 127/84
[2018-02-09] MEDS: ALBUTEROL/IPRATROPIUM 2.5MG/0.5MG, 3 ML NPPB SCH ×3 (07:20→14:55)
[2018-02-09] MEDS: TAMSULOSIN 0.4 MG CAP.ER.24H PO SCH (08:08)
[2018-02-09] MEDS: GUAIFENESIN ER 600 MG TABLET PO SCH (08:08)
[2018-02-09] MEDS: FAMOTIDINE 20 MG/2 ML IVPush SCH (08:09)
[2018-02-09] MEDS: VANCOMYCIN 50 MG/ML ORAL SUSP PO SCH (08:09)
[2018-02-09] MEDS: FLUTICASONE/VILANTEROL 200-25MCG/INH INH SCH (08:09)
[2018-02-09] MEDS: ENOXAPARIN 40 MG/0.4 ML SQ SCH (08:09)
[2018-02-09] MEDS ORDERED: VANC1VIA3 PO (12:35)
[2018-02-09] MEDS ORDERED: PRED10TA PO (12:35)
[2018-02-09] MEDS ORDERED: CIPR500T87 PO (12:35)
[2018-02-09 14:10] VITALS: BP 126/79
== END 2018-02-09 16:14 | disposition home health service (06) | DRG 871 ==
LOC: ED 09:00 → EDIP 09:30 → CCU 11:08 → 4WST 02-04 12:07 → CCU 02-04 12:36 → 4WST 02-05 22:32 → DCLOUNGE 02-09 16:05
PROVIDERS: ADMIT Hospitalist; ATTEND Hospitalist
PROC: 02HV33Z Insertion of Infusion Device into Superior Vena Cava, Percutaneous Approach (ICD-10-PCS; principal; 2018-02-03)
PROC: B548ZZA Ultrasonography of Superior Vena Cava, Guidance (ICD-10-PCS; 2018-02-03)
DX: A41.9 Sepsis, unspecified organism (principal); R65.21 Severe sepsis with septic shock; J15.1 Pneumonia due to Pseudomonas; J96.21 Acute and chronic respiratory failure with hypoxia; N17.0 Acute kidney failure with tubular necrosis; J44.1 Chronic obstructive pulmonary disease with (acute) exacerbation; E46 Unspecified protein-calorie malnutrition; J44.0 Chronic obstructive pulmonary disease with (acute) lower respiratory infection; N39.0 Urinary tract infection, site not specified; Z68.21 Body mass index [BMI] 21.0-21.9, adult; E86.0 Dehydration; I10 Essential (primary) hypertension; N32.0 Bladder-neck obstruction; Z87.891 Personal history of nicotine dependence; Z99.81 Dependence on supplemental oxygen
CPT/HCPCS: 36415; 71045; 76770; 80048; 80053; 81001; 82306; 83605; 83735; 83880; 84100; 84145; 84484; 85025; 87040; 87070; 87077; 87081; 87086; 87107; 87147; 87186; 87205; 87324; 87400; 93005; 94640; 96365; 96367; 96372; 96375; 99291; G0378; J0456; J0696; J1650; J2543; J3370; J7060; J7620; J2930; J3475; J7030; J7050; J7512; S0028

== ENCOUNTER 2019-02-01 13:41 | Emergency (ER) | payer MEDICARE, OTHER ==
[~2019-02-01] VITALS: Ht 160 cm; Wt 55.0 kg
[~2019-02-01 13:41] MED LIST changes: +ACID1TAB3 PO; -ALBU6.7H INH; +ALBU6.7H8 INH; +CIPR500T87 PO; -CLON0.1T PO; +CLON0.1T22 PO; +FIDA200T PO; -GUAI200T3 PO; +GUAI200T37 PO; +OMEP-110 PO; +PRED10TA PO; +PRED10TA14 PO
[2019-02-01] MEDS ORDERED: SODIUM CHLORIDE FLUSH 10ML SYR IVF ONE (14:00)
[2019-02-01] MEDS ORDERED: ONDANSETRON 2MG/ML, 2ML IVPush ONE (14:00)
[2019-02-01] MEDS ORDERED: MORPHINE SULFATE 4 MG/ML, 1ML IVPush PRN (14:00)
[2019-02-01 14:09] LABS: MEAN CORPUSCULAR HEMOGLOBIN 30.7 pg (27.5-34.5); MEAN CORPUSCULAR HGB CONC 31.7 g/dL (33.2-36.2); MEAN CORPUSCULAR VOLUME 96.6 fL (81-97); MEAN PLATELET VOLUME 9.1 fL (7.4-10.4); PLATELET COUNT 210 x10^3/uL (130-400); RED BLOOD COUNT 2.28 x10^6/uL (4.38-5.82); RED CELL DISTRIBUTION WIDTH 19.1 % (9.4-14.8)
[2019-02-01 14:11] LABS: HEMOGRAM NOTE RECHECKED
--- NOTE | 2019-02-01 14:17 | NUR ---
BIB BY PRAVEEN FROM [facility] FOR ABNORMAL LABS (HGB OF 6.5) PRAVEEN PLACED LEFT FOREARM PIV INTO WHICH HE RECEIVED 100ML NS 80, 116/54 FSBS 100 PATIENT REPORTS HE HAS BEEN IN OUT THE HOSPITAL SINCE NOVEMBER EITHER FOR COPD/BLOOD PRESSURE/PNA THEN GOT ABX WHICH LED TO CDIFF ON LEVAQUIN NOW PALE, 84, 96/68. ON HOME O2 AT 5L NC (91%) LAB AT BEDSIDE PATIEN ARRIVED-LABS INCLUDING TYPE AND SCREEN OBTAINED, ECG ALSO OBTAINED REPORTS HX OF CDIFF-PRECAUTIONS PLACED OUTSIDE OF ROOM
[2019-02-01 14:18] LABS: ALANINE AMINOTRANSFERASE 13 U/L (12-78); ALBUMIN 1.3 g/dL (3.4-5.0); ANION GAP 6 mmol/L (5-15); CALCIUM 7.6 mg/dL (8.5-10.1); CHLORIDE 109 mmol/L (98-107); CREATININE 2.52 mg/dL (0.7-1.3)
[2019-02-01 14:21] LABS: ALKALINE PHOSPHATASE 58 U/L (45-117); BILIRUBIN,TOTAL 0.4 mg/dL (0.2-1.0); TOTAL PROTEIN 5.1 g/dL (6.4-8.2)
[2019-02-01 14:29] LABS: INTERNATIONAL NORMALIZED RATIO 1.49 (0.93-1.1); PROTHROMBIN TIME 15.4 Seconds (9.6-11.5)
[2019-02-01 14:55] LABS: MD YES
[2019-02-01 15:00] LABS: ANISOCYTOSIS 1+; BAND#(MANUAL) 2.27 x10^3/uL; BANDS%(MANUAL) 15 % (0-7); HYPOCHROMIA 1+; LYMPH#(MANUAL) 0.76 x10^3/uL (1-3.4); LYMPHS% (MANUAL) 5 % (22-44); METAMYELOCYTES# (MANUAL) 1.21 x10^3/uL (0-0); METAMYELOCYTES% (MANUAL) 8 % (0-1); MONOS#(MANUAL) 1.51 x10^3/uL (0.3-2.7); MONOS% (MANUAL) 10 % (2-9); MYELOCYTES# (MANUAL) 1.36 x10^3/uL (0-0); MYELOCYTES% (MANUAL) 9 % (0-0); SEGS% (MANUAL) 53 % (42-75)
[2019-02-01] MEDS ORDERED: PHENOL THROAT SPRAY BOTTLE MM PRN (15:00)
[2019-02-01 15:01] LABS: <PLATELET ESTIMATE> ADEQUATE; <PLT MORPHOLOGY> NORMAL PLT MORPH
--- NOTE | 2019-02-01 15:20 | NUR ---
INCONTINENT OF STOOL. SAMPLE SENT AND FULL BED BATH/LINEN CHANGE COMPLETED
[2019-02-01 15:29] VITALS: BP 105/62
--- NOTE | 2019-02-01 15:29 | NUR ---
1 UNIT PRBC STARTED AFTER CONSENT OBTAINED. UNIT VERIFIED WITH BILLIE JONES
[2019-02-01 15:44] VITALS: BP 102/72
--- NOTE | 2019-02-01 15:45 | NUR ---
vitals remain stable at 15 transfusion check
--- NOTE | 2019-02-01 16:08 | NUR ---
2nd loose stool noted- er provider made aware
--- NOTE | 2019-02-01 16:34 | NUR ---
UNIT 60% DONE, INFUSING SLOW PATIENT W/ HX OF CHF VITAL REMAIN UNCHANGED ON GUM COOK
[2019-02-01 16:55] VITALS: BP 106/59
[2019-02-01 16:56] LABS: CLOSTRIDIUM DIFFICILE ANTIGEN NEGATIVE; CLOSTRIDIUM DIFFICILE TOXIN NEGATIVE (Negative)
--- NOTE | 2019-02-01 16:57 | NUR ---
UNIT COMPLETE AWAITING CDIFF RESULTS BEFORE DISPO CONFIRMED PATIENT HAS 3RD LOOSE BM FOR WHICH CUT LACE MACHINE OPERATOR PERFORMED FULL BED BATH AND APPLIED BARRIER CREAM TO PERINEUM
[2019-02-01] MEDS ORDERED: METR500T PO (17:10)
[2019-02-01] MEDS ORDERED: Albuterol Sulfate INH (17:10)
[2019-02-01] MEDS ORDERED: AMIN30LI19 PO (17:21)
[2019-02-01] MEDS ORDERED: CLON0.1T2 PO (17:21)
[2019-02-01] MEDS ORDERED: TAMS-11 PO (17:21)
[2019-02-01] MEDS ORDERED: METH4TAB PO (17:21)
[2019-02-01] MEDS ORDERED: LEVO750T26 PO (17:21)
[2019-02-01] MEDS ORDERED: C,E,1CAP PO (17:21)
[2019-02-01] MEDS ORDERED: GUAI400T66 PO (17:21)
[2019-02-01] MEDS ORDERED: LACT1CAP61 PO (17:21)
--- NOTE | 2019-02-01 18:05 | NUR ---
REPORT TO FABIOLA WISE AT [facility] RECCOMENDED SHE RECCOMEND TX PATIENT ANEMIA (IRON,ETC ?) WELL NEED FOR NARRIAR CREAM TO PERINEUM FOR IRRITATED SKIN
--- NOTE | 2019-02-01 18:18 | NUR ---
DIARRHEA NOTED.(4TH TIME HERE IN ER) FULL BED BATH PERFORMED
--- NOTE | 2019-02-01 19:06 | NUR ---
LOOSE STOOLED AGAIN-FULL BRITTANY-CARE PERFORMED
== END 2019-02-01 19:13 | disposition short-term general hospital (02) ==
LOC: ED 18:20
DX: R10.84 Generalized abdominal pain (principal); D63.8 Anemia in other chronic diseases classified elsewhere; R53.1 Weakness; I10 Essential (primary) hypertension; J43.9 Emphysema, unspecified
CPT/HCPCS: 36415; 36430; 80053; 83690; 85025; 85610; 85730; 86850; 86900; 86923; 87324; 89055; 93005; 99285; P9016